=== PATIENT | female | born 1990 | race Caucasian/White ===

== ENCOUNTER 2024-07-03 14:34 | Outpatient (CLI) | payer OTHER, SELFPAY ==
--- NOTE | ~2024-07-03 | MR_ITS ---
EXAMINATION: MR brain/brain stem wo/w con DATE: 07/03/2024 15:22 INDICATION: Unspecified convulsions. Dizziness and giddiness. Headache. TECHNIQUE: Magnetic resonance imaging (MRI) of the brain and brainstem was performed without and with 12 mL MultiHance intravenous contrast. COMPARISON: None. FINDINGS: There is no intracranial hemorrhage, acute infarction, or abnormal intracranial mass lesion . The ventricles are normal in size. The paranasal sinuses are clear. The orbits are normal. The mast oid air cells are normal. IMPRESSION: 1. Normal brain. Reviewed, dictated and finalized at location A. IMPRESSION: 1. Normal brain.
== END 2024-07-03 14:35 | disposition home or self-care (01) ==
LOC: ANHIMG 14:35
PROVIDERS: PCP Nurse Practitioner Family; Visit Provider Nurse Practitioner Family
DX: R56.9 Unspecified convulsions (principal); R51.9 Headache, unspecified; R42 Dizziness and giddiness
CPT/HCPCS: 70553; A9577

== ENCOUNTER 2025-07-20 20:13 | Emergency (ER) | payer OTHER, SELFPAY ==
[2025-07-20 20:19] VITALS: BP 107/71; PULSE 86; RESP 20; TEMP 37.2; O2SAT 98
[2025-07-20 22:01] LABS: Hematocrit 36.7 % (37.0-47.0); Hemoglobin 12.0 g/dL (12.0-15.0); Immature Granulocyte Percent A 0.1 % (0-0.5); Lymphocytes Absolute Auto 1.51 K/mm3 (0.9-3.2); Mean Corpuscular HGB Conc 32.7 g/dl (32-36); Mean Corpuscular Hemoglobin 29.6 pg (26-34); Mean Corpuscular Volume 90.4 fl (80-100); Nucleated Red Blood Cells Absolute Auto 0.000 K/mm3 (0.0-0.012); Nucleated Red Blood Cells Perc 0.0 % (0.0-0.2); Platelet Count Result 299 k/mm3 (150-375); Red Blood Count 4.06 M/mm3 (4.2-5.4); White Blood Count 9.0 K/mm3 (4.5-10.0)
[2025-07-20] MEDS: SODIUM CHLORIDE 0.9% IV 1,000 ML 999 ML IV CONT ×2 (22:08→22:09)
[2025-07-20] MEDS: MAGNESIUM SULF 1 GM/D5W 100 ML 1 GM/100 ML BAG IVPB (22:09)
[2025-07-20] MEDS: FAMOTIDINE 20 MG/2 ML VIAL IV PUSH (22:09)
[2025-07-20] MEDS: PROCHLORPERAZINE EDISYLATE 10 MG/2 ML VIAL IV PUSH (22:09)
[2025-07-20 22:13] LABS: Alanine Aminotransferase 13 U/L (6-35); Albumin Level 4.9 g/dL (3.5-5.1); Alkaline Phosphatase 60 U/L (38-126); Anion Gap 11 mmol/L (4-12); Aspartate Amino Transferase 26 U/L (14-36); Bilirubin,Total 0.4 mg/dL (0.2-1.3); Blood Urea Nitrogen 11 mg/dL (7-17); Calcium 9.3 mg/dL (8.4-10.2); Carbon Dioxide 26 mmol/L (22-30); Chloride 102 mmol/L (98-107); Estimated CRCL calculation 73 ml/min; Estimated Glomerular Filt Rate > 60; Glucose 107 mg/dL (65-110); Lipase 85 U/L (23-300); Magnesium 2.1 mg/dL (1.6-2.3); Potassium 4.2 mmol/L (3.4-5.0); Sodium 139 mmol/L (137-145); Total Protein 8.9 g/dL (6.3-8.2)
[2025-07-20 22:26] LABS: BEDSIDEPREGUCG Negative (Negative)
[2025-07-20 22:43] LABS: Add Urine Microscopic? YES; Appearance Urine Turbid (Clear); Glucose Urine UA Negative (Negative); Leukocyte Esterase Ur 1+ LEU/UL (Negative); Need Manual Microscopic Reviewed; Nitrate Urine Negative (Negative); Specific Grav Ur 1.031 (1.001-1.035)
--- NOTE | 2025-07-20 22:54 | ED.GENADULT ---
HPI - General Adult General Chief complaint: Headache Stated complaint: migraine, N/V/D today Time Seen by Provider: 07/20/25 21:40 History of Present Illness HPI narrative: Patient 35-year-old female who presents emergency department chief complaint of nausea vomiting and diarrhea and migraine for the last week the patient states that she has history of headaches but usually does not have to come to the emergency department reports she also has had problems with chronic abdominal pain Related Data Home Medications ?Medication ?Instructions ?Recorded ?Confirmed ?Last Taken ?Type cyclobenzaprine 10 mg tablet 10 mg PO TID 06/05/24 07/02/25 Unknown History Allergies Allergy/AdvReac Type Severity Reaction Status Date / Time Penicillins Allergy Difficulty Verified 07/20/25 20: Breathing morphine AdvReac Intermediate VOMITING Verified 07/20/25 20:25 Review of Systems Review of Systems: A 10 system review of systems was completed on the patient and is negative except for what is stated in the HPI. Nursing and ancillary documentation was reviewed. [facility] Past Medical History Medical History Encounter to establish care Loss of consciousness Family History Family History Mother Depression Social History Social History Smoking status: Never smoker Alcohol intake: never Substance use: current Substance use type: marijuana Other substance usage details: Medical Marijuana Exam Narrative: GENERAL: Well-appearing, well-nourished, and in no acute distress. HEAD: Normocephalic, atraumatic. EYES: PERRLA and EOMI. ENT: Nares clear, no rhinorrhea or epistaxis. Mucous membranes moist. NECK: Supple. CHEST: Clear to auscultation. No respiratory distress. HEART: Regular rate and rhythm. No murmur heard. Normal peripheral pulses. ABDOMEN: Soft, nontender, nondistended, normal active bowel sounds. EXTREMITIES: Normal range of motion. No edema. SKIN: Warm, dry, no rash. NEURO: No focal deficits. Alert and oriented x3. PSYCH: Normal mood and affect. Course Vital Signs Vital signs: Vital Signs Temperature 37.2 C 07/20/25 20:19 Pulse Rate 86 10/07/25 20:19 Respiratory Rate 20 07/20/25 20:19 Blood Pressure 107/71 07/20/25 20:19 Pulse Oximetry 98 07/20/25 20:19 Oxygen Delivery Room Air 07/20/25 20:19 Temperature 37.2 C 07/20/25 20:19 Pulse Rate 86 07/20/25 20:19 Respiratory Rate 20 07/20/25 20:19 Blood Pressure 107/71 07/20/25 20:19 Pulse Oximetry 98 07/20/25 20:19 Oxygen Delivery Room Air 07/20/25 20:19 Medical Decision Making MDM Narrative Medical decision making narrative: Differential diagnosis includes migraine headache, electrolyte abnormality, gastroenteritis, intra-abdominal infection Laboratory studies were obtained on the patient showed normal CBC with white count of 9.0 hemoglobin was 12.0 electrolytes showed no acute abnormality liver enzymes were normal lipase was normal urinalysis showed 1+ leukocyte esterase 6-10 white blood cells Patient received IV fluids antiemetics and her headache is doing much better at this time feels be significantly improved. Patient was started on antibiotic for UTI and will be discharged home Vital Signs Vital Signs: Vital Signs Temperature 37.2 C 07/20/25 20:19 Pulse Rate 86 07/20/25 20:19 Respiratory Rate 20 07/20/25 20:19 Blood Pressure 107/71 07/20/25 20:19 Pulse Oximetry 98 07/20/25 20:19 Oxygen Delivery Room Air 07/20/25 20:19 Temperature 37.2 C 07/20/25 20:19 Pulse Rate 86 07/20/25 20:19 Respiratory Rate 20 07/20/25 20:19 Blood Pressure 107/71 07/20/25 20:19 Pulse Oximetry 98 07/20/25 20:19 Oxygen Delivery Room Air 07/20/25 20:19 Lab Data 07/20/25 21:54 07/20/25 21:54 Labs: Lab Results 07/20/25 07/20/25 07/20/25 Range/Units 21:54 22:21 22:24 WBC 9.0 (4.5-10.0) K/mm3 RBC 4.06 L (4.2-5.4) M/mm3 Hgb 12.0 (12.0-15.0) g/dL Hct 36.7 L (37.0-47.0) % MCV 90.4 (80-100) fl MCH 29.6 (26-34) pg MCHC 32.7 (32-36) g/dl RDW 12.7 (11.5-14.5) % Plt Count 299 (150-375) k/mm3 MPV 10.3 (7.4-10.4) fl Immature Gran % (Auto) 0.1 (0-0.5) % Neut % (Auto) 79.0 H (45.5-73.1) % Lymph % (Auto) 16.7 L (18.3-44.2) % [place] % (Auto) 3.8 (2.6-8.5) % Eos % (Auto) 0.1 (0-4.4) % Baso % (Auto) 0.3 (0.2-1.2) % Lymph # (Auto) 1.51 (0.9-3.2) K/mm3 [place] # (Auto) 0.3 (0.1-0.6) K/mm3 Eos # (Auto) 0.0 (0-0.3) K/mm3 Baso # (Auto) 0.0 (0.0-0.1) K/mm3 Abs Immat Gran (auto) 0.01 (0.00-0.031) K/mm3 Absolute Neuts (auto) 7.1 H (1.3-6.7) K/mm3 Absolute Nucleated RBC 0.000 (0.0-0.012) K/mm3 Nucleated RBC % 0.0 (0.0-0.2) % Sodium 139 (137-145) mmol/L Potassium 4.2 (3.4-5.0) mmol/L Chloride 102 (98-107) mmol/L Carbon Dioxide 26 (22-30) mmol/L Anion Gap 11 (4-12) mmol/L BUN 11 (7-17) mg/dL Creatinine 0.72 (0.7-1.0) mg/dL Estim Creat Clear Calc 73 ml/min Estimated GFR > 60 (59 - ) Glucose 107 (65-110) mg/dL Calcium 9.3 (8.4-10.2) mg/dL Magnesium 2.1 (1.6-2.3) mg/dL Total Bilirubin 0.4 (0.2-1.3) mg/dL AST 26 (14-36) U/L ALT 13 (6-35) U/L Alkaline Phosphatase 60 (38-126) U/L Total Protein 8.9 H (6.3-8.2) g/dL Albumin 4.9 (3.5-5.1) g/dL Lipase 85 (23-300) U/L Urine Color Yellow (Yellow) Urine Appearance Turbid H (Clear) Urine pH 8.5 (5.0-9.0) Ur Specific [place] 1.031 (1.001-1.035) Urine Protein 1+ H (Negative) mg/dL Urine Glucose (UA) Negative (Negative) mg/dL Urine Ketones 4+ H (Negative) mg/dL Ur Blood (Man) Negative (Negative) Urine Nitrate Negative (Negative) Urine Bilirubin Negative (Negative) Urine Urobilinogen 1.0 (<2.0) mg/dL Add Ur Microanalysis Reviewed Leukocyte Esterase Rfl 1+ H (Negative) LAILA/UL Urine RBC 0-2 (0-2) /hpf Urine WBC 6-10 H (0-3) /hpf Ur Squamous Epith Cells Moderate (Few) /hpf Urine Bacteria None seen /hpf Urine Casts 3-5 Urine Mucus Present /lpf POC Urine HCG, Qual Negative (Negative) Discharge Plan Discharge Clinical Impression: Headache, Abdominal pain, UTI (urinary tract infection) Patient Disposition: Home Condition: Stable Instructions: Antibiotic Form, Urinary Tract Infection in Women (ED), Acute Headache (ED), Abdominal Pain (ED) Patient Language: Frisian Prescriptions: New sulfamethoxazole-trimethoprim [Bactrim DS] 800-160 mg tablet 1 tablet PO Q12H 7 Days Qty: 14 0RF No Action cyclobenzaprine 10 mg tablet 10 mg PO TID Follow-up/Referrals: Monik Arreguin APRN [Primary Care Provider, Internal Medicine] Time of Disposition: 23:15
[2025-07-20 23:26] VITALS: BP 105/59; PULSE 91; RESP 14; O2SAT 100
== END 2025-07-20 23:24 | disposition home or self-care (01) ==
PROVIDERS: Emergency Provider Emergency Medicine; PCP Nurse Practitioner Family
DX: N39.0 Urinary tract infection, site not specified (principal); R51.9 Headache, unspecified; R10.9 Unspecified abdominal pain; G89.29 Other chronic pain
CPT/HCPCS: 36415; 80053; 81001; 81025; 83690; 83735; 85025; 96361; 96374; 96375; 99284; J0780; J1200; J3475; J7030

== ENCOUNTER 2025-08-14 05:39 | Emergency (ER) | payer OTHER, SELFPAY ==
--- NOTE | 2025-08-14 05:57 | ED_ITS ---
HPI - Abdominal Pain General Chief Complaint: Abdominal Pain <Antonio Way MD - Last Filed: 08/15/25 01:05 JUDICIAL LAW CLERK> Stated Complaint: abd pain / n / v <Antonio Way MD - Last Filed: 08/15/25 01:05 JUDICIAL LAW CLERK> Time Seen by Provider: 08/14/25 05:51 <Antonio Way MD - Last Filed: 08/15/25 01:05 JUDICIAL LAW CLERK> History of Present Illness HPI narrative: 35-year-old female with history of chronic abdominal pain and suspected cyclic vomiting syndrome and cannabinoid hyperemesis. Patient presents to the emergency department today with abdominal discomfort nausea vomiting. States he feels similar to her chronic abdominal discomfort and chronic nausea. States she was at [facility] 2 days ago for the same thing and they discharged her after IV and antiemetics including Haldol which did not help. Patient states she is out of pain medicines and nausea medicines at home. She has an extensive history of chronic abdominal pain on review of the EMR and recently admitted to [facility] 2 weeks ago for several days with extensive workup including EGD, Gastroenterology consult, CT scan, ultrasounds. No acute findings, patient requested Dilaudid during that admission as she did not have any pain relief with anything else. Patient requesting Dilaudid presently. No traumatic injuries. No fever chills. States that she has not smoked marijuana in over a week. No new health concerns otherwise. Patient has been on multiple medications for symptom control including citalopram, hyoscyamine, Linzess, Protonix, oxycodone. No symptom relief. <Antonio Way MD - Last Filed: 08/15/25 01:05 JUDICIAL LAW CLERK> Related Data Home Medications: Home Medications ?Medication ?Instructions ?Recorded ?Confirmed ?Last Taken ?Type citalopram 10 mg tablet 10 mg PO DAILY 08/05/2507/15 Unknown History pantoprazole 40 mg tablet,delayed 40 mg PO QAM 5 08/05/25 Unknown History release <Antonio Way MD - Last Filed: 08/15/25 01:05 JUDICIAL LAW CLERK> Allergies/Adverse Reactions: Allergies Allergy/AdvReac Type Severity Reaction Status Date / Time Penicillins Allergy Difficulty Verified 08/14/25 05:39 Breathing morphine AdvReac Intermediate VOMITING Verified 08/14/25 05:39 <Antonio Way MD - Last Filed: 08/15/25 01:05 JUDICIAL LAW CLERK> Review of Systems 2 Review of Systems: As reviewed above in HPI <Antonio Way MD - Last Filed: 08/15/25 01:05 JUDICIAL LAW CLERK> PMFSH Past Medical History Medical History: Medical History Encounter to establish care Loss of consciousness <Antonio Way MD - Last Filed: 08/15/25 01:05 JUDICIAL LAW CLERK> Family History Family History: Family History Mother Depression <Antonio Way MD - Last Filed: 08/15/25 01:05 JUDICIAL LAW CLERK> Social History Social History: Social History Smoking status: Never smoker Alcohol intake: never Substance use: current Substance use type: marijuana Other substance usage details: Medical Marijuana <Antonio Way MD - Last Filed: 08/15/25 01:05 JUDICIAL LAW CLERK> Exam 2 Narrative: GENERAL: [Well-appearing, well-nourished, and in no acute distress.] HEAD: [Normocephalic, atraumatic.] EYES: [PERRLA and EOMI.] ENT: Nares clear, no rhinorrhea or epistaxis. Mucous membranes moist. NECK: Supple. CHEST: [Clear to auscultation. No respiratory distress.] HEART: [Regular rate and rhythm]. No murmur heard. [Normal peripheral pulses.] ABDOMEN: Soft and nontender nondistended, no rigidity guarding. No peritonitis. EXTREMITIES: Normal range of motion. [No edema.] SKIN: Warm, dry, no rash. NEURO: [No focal deficits]. Alert and oriented [x3.] PSYCH: [Normal mood and affect.] <Antonio Way MD - Last Filed: 08/15/25 01:05 JUDICIAL LAW CLERK> Course Course Emergency Course: Patient resting comfortably. Received Toradol for pain as well as droperidol for nausea vomiting and lactated Ringer's for hydration. Labs reviewed without significant abnormalities. She does have some ketones in her urine but no electrolyte derangement. Drug screen positive for cannabis and benzodiazepines. She is prescribed alprazolam. Recommend follow-up with her GI physician. Will continue anti emetics at and also provide some anti-gas medication. <Malcolm Fine MD - Last Filed: 08/14/25 09:56> Vital Signs Vital signs: Vital Signs Pulse Rate 96 08/14/25 07:35 Respiratory Rate 16 08/14/25 07:35 Blood Pressure 138/84 08/14/25 07:35 Pulse Oximetry 100 08/14/25 07:35 Oxygen Delivery Room Air 08/14/25 07:35 Pulse Rate 81 08/14/25 07:40 Respiratory Rate 14 08/14/25 07:40 Blood Pressure 138/84 08/14/25 07:40 Pulse Oximetry 100 08/14/25 07:40 Oxygen Delivery Room Air 08/14/25 07:35 <Antonio Way MD - Last Filed: 08/15/25 01:05 JUDICIAL LAW CLERK> Vital Signs Pulse Rate 96 08/14/25 07:35 Respiratory Rate 16 08/14/25 07:35 Blood Pressure 138/84 08/14/25 07:35 Pulse Oximetry 100 08/14/25 07:35 Oxygen Delivery Room Air 08/14/25 07:35 Pulse Rate 81 08/14/25 07:40 Respiratory Rate 14 08/14/25 07:40 Blood Pressure 138/84 08/14/25 07:40 Pulse Oximetry 100 08/14/25 07:40 Oxygen Delivery Room Air 08/14/25 07:35 <Malcolm Fine MD - Last Filed: 08/14/25 09:56> MDM - Abdominal Pain MDM Narrative Medical decision making narrative: 35-year-old female with history of chronic abdominal pain and suspected cyclic vomiting syndrome and cannabinoid hyperemesis. Patient presents to the emergency department today with abdominal discomfort nausea vomiting. States he feels similar to her chronic abdominal discomfort and chronic nausea. States she was at [facility] 2 days ago for the same thing and they discharged her after IV and antiemetics including Haldol which did not help. Patient states she is out of pain medicines and nausea medicines at home. She has an extensive history of chronic abdominal pain on review of the EMR and recently admitted to [facility] 2 weeks ago for several days with extensive workup including EGD, Gastroenterology consult, CT scan, ultrasounds. No acute findings, patient requested Dilaudid during that admission as she did not have any pain relief with anything else. Patient requesting Dilaudid presently. No traumatic injuries. No fever chills. States that she has not smoked marijuana in over a week. No new health concerns otherwise. Patient has been on multiple medications for symptom control including citalopram, hyoscyamine, Linzess, Protonix, oxycodone. No symptom relief. Patient has an unremarkable examination with soft nondistended nontender abdomen with no peritonitis or rigidity. Hemodynamically stable without any tachycardia, fever, hypoxia. Blood pressure 126/86. Respirations 13, pulse 78, 99% on room air. Patient's symptoms sound like cyclic vomiting/chronic abdominal pain with low concern acute process given her extensive workup previously. No change in quality to her chronic abdominal pain or any red flags on history or physical needing advanced imaging at this time and risks of repeated radiation exposure outweigh the benefits of another nondiagnostic CT scan. Laboratory studies obtained and she was given droperidol and fluids. Patient care signed over to morning physician pending labs and repeat evaluation. <Antonio Way MD - Last Filed: 08/15/25 01:05 JUDICIAL LAW CLERK> Medical Records Attestation: I reviewed the patient's medical records. <Antonio Way MD - Last Filed: 08/15/25 01:05 JUDICIAL LAW CLERK> Lab Data Attestation: I reviewed the patient's lab results. <Antonio Way MD - Last Filed: 08/15/25 01:05 JUDICIAL LAW CLERK> Result diagrams: 08/14/25 06:47 08/14/25 06:47 <Antonio Way MD - Last Filed: 08/15/25 01:05 JUDICIAL LAW CLERK> Labs: Lab Results 08/14/25 08/14/25 Range/Units 06:47 07:34 WBC 10.1 H (4.5-10.0) K/mm3 RBC 4.01 L (4.2-5.4) M/mm3 Hgb 12.0 (12.0-15.0) g/dL Hct 36.5 L (37.0-47.0) % MCV 91.0 (80-100) fl MCH 29.9 (26-34) pg MCHC 32.9 (32-36) g/dl RDW 12.7 (11.5-14.5) % Plt Count 341 (150-375) k/mm3 MPV 10.7 H (7.4-10.4) fl Immature Gran % (Auto) 0.3 (0-0.5) % Neut % (Auto) 73.9 H (45.5-73.1) % Lymph % (Auto) 17.3 L (18.3-44.2) % [place] % (Auto) 7.8 (2.6-8.5) % Eos % (Auto) 0.1 (0-4.4) % Baso % (Auto) 0.6 (0.2-1.2) % Lymph # (Auto) 1.74 (0.9-3.2) K/mm3 [place] # (Auto) 0.8 H (0.1-0.6) K/mm3 Eos # (Auto) 0.0 (0-0.3) K/mm3 Baso # (Auto) 0.1 (0.0-0.1) K/mm3 Abs Immat Gran (auto) 0.03 (0.00-0.031) K/mm3 Absolute Neuts (auto) 7.5 H (1.3-6.7) K/mm3 Absolute Nucleated RBC 0.000 (0.0-0.012) K/mm3 Nucleated RBC % 0.0 (0.0-0.2) % Sodium 134 L (137-145) mmol/L Potassium 3.5 (3.4-5.0) mmol/L Chloride 98 (98-107) mmol/L Carbon Dioxide 23 (22-30) mmol/L Anion Gap 13 H (4-12) mmol/L BUN 9 (7-17) mg/dL Creatinine 0.52 L (0.7-1.0) mg/dL Estim Creat Clear Calc Not Reportable Estimated GFR > 60 (59 - ) Glucose 95 (65-110) mg/dL Lactic Acid 1.2 (0.7-2.0) mmol/L Calcium 9.3 (8.4-10.2) mg/dL Total Bilirubin 0.7 (0.2-1.3) mg/dL AST 30 (14-36) U/L ALT 17 (6-35) U/L Alkaline Phosphatase 59 (38-126) U/L Total Protein 8.4 H (6.3-8.2) g/dL Albumin 4.9 (3.5-5.1) g/dL Lipase 253 (23-300) U/L Urine Color Yellow (Yellow) Urine Appearance Cloudy H (Clear) Urine pH 6.0 (5.0-9.0) Ur Specific [place] 1.030 (1.001-1.035) Urine Protein 1+ H (Negative) mg/dL Urine Glucose (UA) Negative (Negative) mg/dL Urine Ketones 4+ H (Negative) mg/dL Ur Blood (Man) 2+ H (Negative) Urine Nitrate Negative (Negative) Urine Bilirubin Negative (Negative) Urine Urobilinogen 1.0 (<2.0) mg/dL Add Ur Microanalysis Reviewed Leukocyte Esterase Rfl Negative (Negative) LAILA/UL Urine RBC 0-2 (0-2) /hpf Urine WBC 6-10 H (0-3) /hpf Ur Squamous Epith Cells Moderate (Few) /hpf Urine Bacteria Rare /hpf Urine Casts 0-2 POC Urine HCG, Qual Negative (Negative) Urine Opiates Screen Negative (Negative) Urine Methadone Screen Negative (Negative) Ur Barbiturates Screen Negative (Negative) Ur Phencyclidine Scrn Negative (Negative) Ur Amphetamine Screen Negative (Negative) U Benzodiazepines Scrn Positive A (Negative) Urine Cocaine Screen Negative (Negative) U Cannabinoids Screen Positive A (Negative) <Antonio Way MD - Last Filed: 08/15/25 01:05 JUDICIAL LAW CLERK> Lab Results 08/14/25 08/14/25 Range/Units 06:47 07:34 WBC 10.1 H (4.5-10.0) K/mm3 RBC 4.01 L (4.2-5.4) M/mm3 Hgb 12.0 (12.0-15.0) g/dL Hct 36.5 L (37.0-47.0) % MCV 91.0 (80-100) fl MCH 29.9 (26-34) pg MCHC 32.9 (32-36) g/dl RDW 12.7 (11.5-14.5) % Plt Count 341 (150-375) k/mm3 MPV 10.7 H (7.4-10.4) fl Immature Gran % (Auto) 0.3 (0-0.5) % Neut % (Auto) 73.9 H (45.5-73.1) % Lymph % (Auto) 17.3 L (18.3-44.2) % [place] % (Auto) 7.8 (2.6-8.5) % Eos % (Auto) 0.1 (0-4.4) % Baso % (Auto) 0.6 (0.2-1.2) % Lymph # (Auto) 1.74 (0.9-3.2) K/mm3 [place] # (Auto) 0.8 H (0.1-0.6) K/mm3 Eos # (Auto) 0.0 (0-0.3) K/mm3 Baso # (Auto) 0.1 (0.0-0.1) K/mm3 Abs Immat Gran (auto) 0.03 (0.00-0.031) K/mm3 Absolute Neuts (auto) 7.5 H (1.3-6.7) K/mm3 Absolute Nucleated RBC 0.000 (0.0-0.012) K/mm3 Nucleated RBC % 0.0 (0.0-0.2) % Sodium 134 L (137-145) mmol/L Potassium 3.5 (3.4-5.0) mmol/L Chloride 98 (98-107) mmol/L Carbon Dioxide 23 (22-30) mmol/L Anion Gap 13 H (4-12) mmol/L BUN 9 (7-17) mg/dL Creatinine 0.52 L (0.7-1.0) mg/dL Estim Creat Clear Calc Not Reportable Estimated GFR > 60 (59 - ) Glucose 95 (65-110) mg/dL Lactic Acid 1.2 (0.7-2.0) mmol/L Calcium 9.3 (8.4-10.2) mg/dL Total Bilirubin 0.7 (0.2-1.3) mg/dL AST 30 (14-36) U/L ALT 17 (6-35) U/L Alkaline Phosphatase 59 (38-126) U/L Total Protein 8.4 H (6.3-8.2) g/dL Albumin 4.9 (3.5-5.1) g/dL Lipase 253 (23-300) U/L Urine Color Yellow (Yellow) Urine Appearance Cloudy H (Clear) Urine pH 6.0 (5.0-9.0) Ur Specific [place] 1.030 (1.001-1.035) Urine Protein 1+ H (Negative) mg/dL Urine Glucose (UA) Negative (Negative) mg/dL Urine Ketones 4+ H (Negative) mg/dL Ur Blood (Man) 2+ H (Negative) Urine Nitrate Negative (Negative) Urine Bilirubin Negative (Negative) Urine Urobilinogen 1.0 (<2.0) mg/dL Add Ur Microanalysis Reviewed Leukocyte Esterase Rfl Negative (Negative) LAILA/UL Urine RBC 0-2 (0-2) /hpf Urine WBC 6-10 H (0-3) /hpf Ur Squamous Epith Cells Moderate (Few) /hpf Urine Bacteria Rare /hpf Urine Casts 0-2 POC Urine HCG, Qual Negative (Negative) Urine Opiates Screen Negative (Negative) Urine Methadone Screen Negative (Negative) Ur Barbiturates Screen Negative (Negative) Ur Phencyclidine Scrn Negative (Negative) Ur Amphetamine Screen Negative (Negative) U Benzodiazepines Scrn Positive A (Negative) Urine Cocaine Screen Negative (Negative) U Cannabinoids Screen Positive A (Negative) <Malclom Fine MD - Last Filed: 08/14/25 09:56> Discharge Plan Discharge Clinical Impression: Chronic abdominal pain, Cyclical vomiting <Antonio Way MD - Last Filed: 08/15/25 01:05 JUDICIAL LAW CLERK> Patient Disposition: Home <Antonio Way MD - Last Filed: 08/15/25 01:05 JUDICIAL LAW CLERK> Condition: Stable <Antonio Way MD - Last Filed: 08/15/25 01:05 JUDICIAL LAW CLERK> Instructions: Abdominal Pain (ED), Cyclic Vomiting Syndrome (ED) <Antonio Way MD - Last Filed: 08/15/25 01:05 JUDICIAL LAW CLERK> Additional Instructions: Return to the emergency department if you develop severe abdominal pain, severe nausea and vomiting to the point where you are unable to keep down fluids, if you develop chest pain or difficulty breathing, blood in your stool, dizziness or fainting, or if you develop any other new or concerning symptoms as these could be signs of more serious medical illness. Try to stay well hydrated. Additionally, a many people are experiencing cyclic vomiting syndrome related to marijuana use. Is recommended to ease her symptoms that you discontinue use of any cannabinoid. <Antonio Way MD - Last Filed: 08/15/25 01:05 JUDICIAL LAW CLERK> Patient Language: Arabic <Antonio Way MD - Last Filed: 08/15/25 01:05 JUDICIAL LAW CLERK> Prescriptions: New simethicone 125 mg capsule 125 mg PO QID Qty: 20 0RF Rx Instructions: administer after meals and at bedtime ondansetron 4 mg tablet,disintegrating 4 mg PO Q6H PRN (Reason: nausea and vomiting) Qty: 10 0RF No Action pantoprazole 40 mg tablet,delayed release (DR/EC) 40 mg PO QAM citalopram 10 mg tablet 10 mg PO DAILY linaclotide 145 mcg capsule 145 mcg capsule 0RF hyoscyamine sulfate 0.125 mg tablet, sublingual See Rx Instructions .ROUTE .COMPLEX Qty: 360 0RF Dose Instruction: DISSOLVE 1 TABLET UNDER THE TONGUE FOUR TIMES DAILY NEEDED FOR INDIGESTION Rx Instructions: DISSOLVE 1 TABLET UNDER THE TONGUE FOUR TIMES DAILY NEEDED FOR INDIGESTION <Antonio Way MD - Last Filed: 08/15/25 01:05 JUDICIAL LAW CLERK> Follow-up/Referrals: Monik Arreguin APRN [Primary Care Provider, Internal Medicine] - [address] Week <[address] MD - Last Filed: 08/15/25 01:05 JUDICIAL LAW CLERK>
--- OUTSIDE RECORDS SUMMARY | 2025-08-14 06:02 | XMS_ITS | Clinical Summary ---
Author Organization [facility] al Address [address] [place] [address] Care Team Providers Care Energy Director Name Role Phone Monik Arreguin NP Primary Care Provider [phone] Allergies Active Allergy Reactions Criticality Noted Date Comments Morphine Nausea & Vomiting High 07/20/2025 Penicillins Shortness of breath High 07/20/2025 Medications haloperidoL (HALDOL) 5 mg tabletIndication s:Abdominal Pain of Unknown Cause,Nausea and Vomiting Take 1 tablet (5 mg total) by mouth 3 (three) times a day as needed (Abdominal pain and / or nausea) 60 tablet 1 08/07/2025 Active Encounters Date Type Department Care Team Description 08/07/2025 6:03 PM CDT - 08/07/2025 8:18 PM CDT Emergency [facility] Emergency Department [address] [place] [address] Chronic abdominal pain (Primary Dx) Discharge Disposition: Discharge to home or self care from Last 3 Months Social History Tobacco Use Types Packs/Day Years Used Date Smoking Tobacco: Never Assessed Personal Safety Answer Date Recorded Have you ever been in or are you currently in a harmful physical or emotional relationship or is someone making you feel afraid or unsafe? Denies 08/07/2025 Comments Unknown Sex and Gender Information Value Date Recorded Sex Assigned at Not on file Legal Sex Female 8:37 AM [employer] Gender Identity Not on file Sexual Orientation Not on file Obstetrics History Last Filed Vital Signs Vital Sign Reading Time Taken Comments Blood Pressure 114/75 08/07/2025 8:10 PM CDT Pulse 98 08/07/2025 8:10 PM CDT Temperature 36.8 C (98.3 F) 08/07/2025 4:54 PM CDT Respiratory Rate 16 08/07/2025 8:10 PM CDT Oxygen Saturation 99% 08/07/2025 8:10 PM CDT Inhaled Oxygen Concentration - - Weight 59.4 kg (131 lb) 08/07/2025 4:54 PM CDT Height 157.5 cm (5' 2) 08/07/2025 4:54 PM CDT Body Mass Index 23.96 08/07/2025 4:54 PM CDT Plan of Treatment Health Maintenance Due Date Last Done Comments Cervical Cancer Screening 1988 Depression Screening 1988 Hepatitis C Screening 1988 Varicella Vaccines (1 of 2 - 13+ 2-dose series) 02/18/2001 Hepatitis B Screening 02/18/2006 Regular Well Visit/Exam 18-64 02/18/2006 HPV Vaccines (1 - 3-dose SCD M series) 02/18/2015 Influenza Vaccine (#1) 2025 DTaP/Tdap/Td Vaccine (2 - Td or Tdap) 01/14/2029 01/14/2019 Pneumococcal vaccine <65 Aged Out No longer eligible based on patient's age to complete this topic Procedures Procedure Name Priority Date/Time Associated Diagnosis Comments EGFR STAT 08/07/2025 6:20 PM CDT COMPREHENSIVE METABOLIC PANEL STAT 08/07/2025 6:20 PM CDT ECG 12-LEAD STAT 08/07/2025 5:10 PM CDT from Last 3 Months Results * eGFR (08/07/2025 6:20 PM CDT) eGFR >90 >=60 mL/min/1. 73 m2 Comment: Interpretive Data Reference Interval Normal >/= 90 mL/min/1.73m2 Mildly decreased* 60 - 89 mL/min/1.73m2 Mildly to moderately decreased 45 - 59 mL/min/1.73m2 Moderately to severely decreased 30 - 44 mL/min/1.73m2 Severely decreased 15 - 29 mL/min/1.73m2 Kidney Failure < 15 mL/min/1.73m2 *Relative to young adult level Estimated glomerular filtration rate is determined by the 2020 CKD-EPI equation recommended by the [employer] (A Unifying Approach to GFR Estimation: Recommendations of the NKF-ASK Task Force on Reassessing the Inclusion of Race in Diagnosing Kidney Disease, JASN 2020). The CKD-EPI equation should not be used for patients with unstable renal function and has not been validated in children and those over 70. Current interpretive data was last reviewed 2021. Blood 08/07/2025 6:20 PM CDT 08/07/2025 6:30 PM CDT us Bravo Nguyen MD LAB BLOOD ORDERABLES Final Re sult [facility] Department [place] [address] * (ABNORMAL) Comprehensive metabolic panel (08/07/2025 6:20 PM CDT) Sodium 138 135 - 145 mmol/L Potassium, pl See Comment 3.3 - 4.9 mmol/L [facility] Comment:Credited; Hemolyzed Specimen Chloride 103 97 - 110 mmol/L [facility] CO2 20(L) 22 - 32 mmol/L [facility] Anion gap 15 2 - 15 mmol/L [facility] BUN 9 6 - 25 mg/dL [facility] Creatinine 0.57(L) 0.60 - 1.10 mg/dL [facility] Glucose 125 70 - 199 mg/dL [facility] Comment: Interpretive Data Fasting glucose >/= 126 mg/dl is diagnostic for diabetes. Fasting is defined as no caloric intake for at least 8 hours. Fasting glucose between 100 mg/dl to 125 mg/dl is diagnostic of prediabetes. In a patient with classic symptoms of hyperglycemia or hyperglycemic crisis, a random glucose >/= 200 mg/dl is diagnostic for diabetes. In the absence of unequivocal hyperglycemia, results should be confirmed by repeat testing. The classification and Diagnosis of Diabetes Diabetes Care 2021; 46: S19-S40. Current interpretive data was last revised 2022. Calcium 9.5 8.5 - 10.3 mg/dL [facility] Bilirubin, total 0.6 0.1 - 1.2 mg/dL [facility] Protein, pl 8.6(H) 6.5 - 8.5 g/dL [facility] Albumin 5.0 3.5 - 5.0 g/dL [facility] Alk phos 44 40 - 130 Units/L [facility] Comment:Hemolyzed; result ma y be falsely decreased ALT See Comment 7 - 45 Units/L [facility] Comment:Credited; Hemolyzed Specimen AST See Comment 10 - 45 Units/L [facility] Comment:Credited; Hemolyzed Specimen Blood Venous blood specimen / Unknown 08/07/2025 6:20 PM CDT 08/07/2025 6:30 PM CDT us Bravo Nguyen MD LAB BLOOD ORDERABLES Final Re sult [facility] [place] [address] * ECG 12-LEAD (08/07/2025 5:10 PM CDT) Narrative [facility] - 08/07/2025 5:10 PM CDT Rosey Faria MD 08/07/2025 5:11 PM ECG 12 lead Date/Time: 08/07/2025 5:10 PM Performed by: Rosey Faria MD Authorized by: Bravo Nguyen MD Quality: Tracing quality: Limited by artifact Rate: ECG rate: 100 ECG rate assessment: normal Rhythm: Rhythm: sinus rhythm Ectopy: Ectopy: none QRS: QRS axis: Normal Conduction: Conduction: normal ST segments: ST segments: Normal T waves: T waves: normal Previous ECG: Previous ECG: Unavailable Interpretation: Interpretation: normal Recommended Follow-up: Recommended follow up: further workup in the ED Procedure Note Rosey Faria MD - 08/07/2025 5:10 PM CDT Procedure ECG 12 lead Date/Time: 08/07/2025 5:10 PM Performed by: Rosey Faria MD Authorized by: Bravo Nguyen MD Quality: Tracing quality: Limited by artifact Rate: ECG rate: 100 ECG rate assessment: normal Rhythm: Rhythm: sinus rhythm Ectopy: Ectopy: none QRS: QRS axis: Normal Conduction: Conduction: normal ST segments: ST segments: Normal T waves: T waves: normal Previous ECG: Previous ECG: Unavailable Interpretation: Interpretation: normal Recommended Follow-up: Recommended follow up: further workup in the ED Rosey Faria MD 08/07/25 1711 us Bravo Nguyen MD ECG ORDERABLES Final Result [facility] from Last 3 Months Insurance [employer] [place] Care Teams Energy Director Relationship Specialty Start Date End Date Monik Arreguin NP [address] [place] [address] PCP - General Family Medicine 08/07/25
--- OUTSIDE RECORDS SUMMARY | 2025-08-14 06:03 | XMS_ITS | Data Portability ---
[facility] [address] [place] [address] Assessment No assessment recorded. Plan of Treatment Reminders Order Date Submit Date Provider Last Modified By Organization Details Last Modified Time Details Appointments None recorded. Lab urinalysi s, dipstick 2018 019 In-Office Order, Internal Use Only DO Not Attach Compendium DO Not Attach Compendium, Do Not Delete/merge, [id number] 9 17:17:11 test, urine 2018 019 [email or web address] In-Office Order, Internal Use Only DO Not Attach Compendium DO Not Attach Compendium, Do Not Delete/merge, [id number] 9 16:42:31 pap, IG + HPV, cervical 2018 019 JUNIOR [facility] (Centralized Electronic Ordering - All Locations), Patient Can Go To The Location Of Their Choice, [id number] 9 07:11:12 bacterial vaginosis + vaginitis panel, vaginal 2018 019 JUNIOR [facility] (Centralized Electronic Ordering - All Locations), Patient Can Go To The Location Of Their Choice, [id number] 9 06:05:39 HSV (1+2) DNA, qual, PCR, unspecifi ed specimen 2018 019 JUNIOR [facility] (Centralized Electronic Ordering - All Locations), Patient Can Go To The Location Of Their Choice, [id number] 9 06:05:40 culture, vaginal/r ectal, streptoco ccus group B 2018 019 JUNIOR [facility] (Centralized Electronic Ordering - All Locations), Patient Can Go To The Location Of Their Choice, 9 06:05:40 urinalysi s, dipstick 2018 019 [email or web address] In-Office Order, Internal Use Only DO Not Attach Compendium DO Not Attach Compendium, Do Not Delete/merge, [id number] 9 17:54:47 urinalysi s, dipstick 2018 019 [email or web address] In-Office Order, Internal Use Only DO Not Attach Compendium DO Not Attach Compendium, Do Not Delete/merge, [id number] 9 18:01:09 HSV (1+2) DNA, qual, PCR, unspecifi ed specimen - Please fax results to [facility] at [phone] 019 JUNIOR [facility] (Centralized Electronic Ordering - All Locations), Patient Can Go To The Location Of Their Choice, 9 14:10:41 culture, vaginal/r ectal, streptoco ccus group B - Please fax results to [facility] at 2018 019 [facility] Patient Can Go To The Location Of Their Choice, 9 14:10:42 bacterial vaginosis + vaginitis panel, vaginal - Please fax results to [facility] at 2018 019 JUNIOR [facility] (Centralized Electronic Ordering - All Locations), Patient Can Go To The Location Of Their Choice, 9 14:10:40 urinalysi s, dipstick 2018 019 [email or web address] In-Office Order, Internal Use Only DO Not Attach Compendium DO Not Attach Compendium, Do Not Delete/merge, [id number] 9 16:51:29 Referral None recorded. Procedures None recorded. Surgeries None recorded. Imaging None recorded. Medication Orders None recorded. Patient TargetsNo targets recorded. Patient Instructions Encounter Date Encounter Id Patient Instructions Last Modified By Organization Details Last Modified Time 04/29/2019 [id number] after your delivery (the period): care instructions mumtaz Not available 04/29/2019 16:42:31 Reason for Referral None Reported. Results Created Date Observation Date Name Description Value Unit Range Abnormal Flag Note LastModifiedBy Organization Detail LastModifiedTime 04/29/20 19 04/29/2019 pregn malou test, urine HCG negati ve Not Available In-Office Order Internal Use Only DO Not Attach Compendium DO Not Attach Compendium, Do Not Delete/merge, [id number] 04/29/2019 15:56:13 04/29/2004/29/2019 urina lysis , dipst ick Leukocytes Negati ve Not Available In-Office Order Internal Use Only DO Not Attach Compendium DO Not Attach Compendium, Do Not Delete/merge, [id number] 04/29/2019 15:56:12 04/29/2004/29/2019 urina lysis , dipst ick Nitrite negati ve Not Available In-Office Order Internal Use Only DO Not Attach Compendium DO Not Attach Compendium, Do Not Delete/merge, [id number] 04/29/2019 15:56:12 04/29/2004/29/2019 urina lysis , dipst ick Urobilinogen .2 Not Available In-Of fice Order Internal Use Only DO Not Attach Compendium DO Not Attach Compendium, Do Not Delete/merge, [id number] 04/29/2019 15:56:12 04/29/2004/29/2019 urina lysis , dipst ick Protein Negati ve Not Available In-Office Order Internal Use Only DO Not Attach Compendium DO Not Attach Compendium, Do Not Delete/merge, [id number] 04/29/2019 15:56:12 04/29/2004/29/2019 urina lysis , dipst ick pH 6.5 Not Available In-Office Order Internal Use Only DO Not Attach Compendium DO Not Attach Compendium, Do Not Delete/merge, [id number] 04/29/2019 15:56:12 04/29/2004/29/2019 urina lysis , dipst ick Blood Negati ve Not Available In-Office Order Internal Use Only DO Not Attach Compendium DO Not Attach Compendium, Do Not Delete/merge, [id number] 04/29/2019 15:56:12 04/29/20 19 04/29/2019 urina lysis , dipst ick Specific Wilton 1.010 Not Available In-Off ice Order Internal Use Only DO Not Attach Compendium DO Not Attach Compendium, Do Not Delete/merge, [facility] 04/29/2019 15:56:12 04/29/20 19 04/29/2019 urina lysis , dipst ick Ketone Negati ve Not Available In-Office Order Internal Use Only DO Not Attach Compendium DO Not Attach Compendium, Do Not Delete/merge, [facility] 04/29/2019 15:56:12 04/29/20 19 04/29/2019 urina lysis , dipst ick Bilirubin Negati ve Not Available In-Office Order Internal Use Only DO Not Attach Compendium DO Not Attach Compendium, Do Not Delete/merge, [facility] 04/29/2019 15:56:12 04/29/20 19 04/29/2019 urina lysis , dipst ick Glucose Negati ve Not Available In-Office Order Internal Use Only DO Not Attach Compendium DO Not Attach Compendium, Do Not Delete/merge, [facility] 04/29/2019 15:56:12 03/18/20 19 03/18/2019 urina lysis , dipst ick Leukocytes Trace Not Available In-Offi ce Order Internal Use Only DO Not Attach Compendium DO Not Attach Compendium, Do Not Delete/merge, [facility] 03/18/2019 16:05:27 03/18/20 19 03/18/2019 urina lysis , dipst ick Nitrite negati ve Not Available In-Office Order Internal Use Only DO Not Attach Compendium DO Not Attach Compendium, Do Not Delete/merge, [facility] 03/18/2019 16:05:27 03/18/20 19 03/18/2019 urina lysis , dipst ick Urobilinogen .2 Not Available In-Of fice Order Internal Use Only DO Not Attach Compendium DO Not Attach Compendium, Do Not Delete/merge, [facility] 03/18/2019 16:05:27 0603/18/2019 urina lysis , dipst ick Protein 30 Not Available In-Office Order Internal Use Only DO Not Attach Compendium DO Not Attach Compendium, Do Not Delete/merge, [id number] 03/18/2019 16:05:27 03/18/2003/18/2019 urina lysis , dipst ick pH 6.0 Not Available In-Office Order Internal Use Only DO Not Attach Compendium DO Not Attach Compendium, Do Not Delete/merge, [facility] 03/18/2019 16:05:27 03/18/2003/18/2019 urina lysis , dipst ick Blood Negati ve Not Available In-Office Order Internal Use Only DO Not Attach Compendium DO Not Attach Compendium, Do Not Delete/merge, [facility] 03/18/2019 16:05:27 03/18/2003/18/2019 urina lysis , dipst ick Specific Wilton 1.030 Not Available In-Off ice Order Internal Use Only DO Not Attach Compendium DO Not Attach Compendium, Do Not Delete/merge, [facility] 03/18/2019 16:05:27 03/18/2003/18/2019 urina lysis , dipst ick Ketone Large (160) Not Available In-Office Order Internal Use Only DO Not Attach Compendium DO Not Attach Compendium, Do Not Delete/merge, [facility] 03/18/2019 16:05:27 03/18/20 19 03/18/2019 urina lysis , dipst ick Bilirubin Small Not Available In-Offic e Order Internal Use Only DO Not Attach Compendium DO Not Attach Compendium, Do Not Delete/merge, [id number] 03/18/2019 16:05:27 03/18/2003/18/2019 urina lysis , dipst ick Glucose Negati ve Not Available In-Office Order Internal Use Only DO Not Attach Compendium DO Not Attach Compendium, Do Not Delete/merge, [id number] 03/18/2019 16:05:27 03/11/2003/11/2019 urina lysis , dipst ick Leukocytes Negati ve Not Available In-Office Order Internal Use Only DO Not Attach Compendium DO Not Attach Compendium, Do Not Delete/merge, [id number] 03/11/2019 16:14:39 03/11/20 19 03/11/2019 urina lysis , dipst ick Nitrite negati ve Not Available In-Office Order Internal Use Only DO Not Attach Compendium DO Not Attach Compendium, Do Not Delete/merge, [id number] 03/11/2019 16:14:39 03/11/20 19 03/11/2019 urina lysis , dipst ick Urobilinogen .2 Not Available In-Of fice Order Internal Use Only DO Not Attach Compendium DO Not Attach Compendium, Do Not Delete/merge, [id number] 03/11/2019 16:14:39 03/11/20 19 03/11/2019 urina lysis , dipst ick Protein Trace Not Available In-Office Order Internal Use Only DO Not Attach Compendium DO Not Attach Compendium, Do Not Delete/merge, [id number] 03/11/2019 16:14:39 03/11/20 19 03/11/2019 urina lysis , dipst ick pH 6.0 Not Available In-Office Order Internal Use Only DO Not Attach Compendium DO Not Attach Compendium, Do Not Delete/merge, [id number] 03/11/2019 16:14:39 03/11/20 19 03/11/2019 urina lysis , dipst ick Blood Negati ve Not Available In-Office Order Internal Use Only DO Not Attach Compendium DO Not Attach Compendium, Do Not Delete/merge, [id number] 03/11/2019 16:14:39 03/11/20 19 03/11/2019 urina lysis , dipst ick Specific Wil[place] 1.030 Not Available In-Off ice Order Internal Use Only DO Not Attach Compendium DO Not Attach Compendium, Do Not Delete/merge, [id number] 03/11/2019 16:14:39 03/11/20 19 03/11/2019 urina lysis , dipst ick Ketone Negati ve Not Available In-Office Order Internal Use Only DO Not Attach Compendium DO Not Attach Compendium, Do Not Delete/merge, [id number] 03/11/2019 16:14:39 03/11/20 19 03/11/2019 urina lysis , dipst ick Bilirubin Negati ve Not Available In-Office Order Internal Use Only DO Not Attach Compendium DO Not Attach Compendium, Do Not Delete/merge, [id number] 03/11/2019 16:14:39 03/11/20 19 03/11/2019 urina lysis , dipst ick Glucose Negati ve Not Available In-Office Order Internal Use Only DO Not Attach Compendium DO Not Attach Compendium, Do Not Delete/merge, [id number] 03/11/2019 16:14:39 03/04/20 19 03/04/2019 urina lysis , dipst ick Leukocytes Negati ve Not Available In-Office Order Internal Use Only DO Not Attach Compendium DO Not Attach Compendium, Do Not Delete/merge, [id number] 03/04/2019 16:29:10 03/04/20 19 03/04/2019 urina lysis , dipst ick Nitrite negati ve Not Available In-Office Order Internal Use Only DO Not Attach Compendium DO Not Attach Compendium, Do Not Delete/merge, [id number] 03/04/2019 16:29:10 03/04/20 19 03/04/2019 urina lysis , dipst ick Urobilinogen .2 Not Available In-Of fice Order Internal Use Only DO Not Attach Compendium DO Not Attach Compendium, Do Not Delete/merge, [id number] 03/04/2019 16:29:10 03/04/20 19 03/04/2019 urina lysis , dipst ick Protein 30 Not Available In-Office Order Internal Use Only DO Not Attach Compendium DO Not Attach Compendium, Do Not Delete/merge, [id number] 03/04/2019 16:29:10 03/04/20 19 03/04/2019 urina lysis , dipst ick pH 6.0 Not Available In-Office Order Internal Use Only DO Not Attach Compendium DO Not Attach Compendium, Do Not Delete/merge, [id number] 03/04/2019 16:29:10 03/04/20 19 03/04/2019 urina lysis , dipst ick Blood Negati ve Not Available In-Office Order Internal Use Only DO Not Attach Compendium DO Not Attach Compendium, Do Not Delete/merge, [id number] 03/04/2019 16:29:10 03/04/20 19 03/04/2019 urina lysis , dipst ick Specific Wil[place] 1.030 Not Available In-Off ice Order Internal Use Only DO Not Attach Compendium DO Not Attach Compendium, Do Not Delete/merge, [id number] 03/04/2019 16:29:10 03/04/20 19 03/04/2019 urina lysis , dipst ick Ketone Trace Not Available In-Office Order Internal Use Only DO Not Attach Compendium DO Not Attach Compendium, Do Not Delete/merge, [id number] 03/04/2019 16:29:10 03/04/20 19 03/04/2019 urina lysis , dipst ick Bilirubin Negati ve Not Available In-Office Order Internal Use Only DO Not Attach Compendium DO Not Attach Compendium, Do Not Delete/merge, [id number] 03/04/2019 16:29:10 03/04/20 19 03/04/2019 urina lysis , dipst ick Glucose Negati ve Not Available In-Office Order Internal Use Only DO Not Attach Compendium DO Not Attach Compendium, Do Not Delete/merge, [id number] 03/04/2019 16:29:10 02/19/20 19 02/18/2019 urina lysis , dipst ick Leukocytes Negati ve Not Available In-Office Order Internal Use Only DO Not Attach Compendium DO Not Attach Compendium, Do Not Delete/merge, [id number] 02/18/2019 15:47:34 02/19/20 19 02/18/2019 urina lysis , dipst ick Nitrite negati ve Not Available In-Office Order Internal Use Only DO Not Attach Compendium DO Not Attach Compendium, Do Not Delete/merge, [id number] 02/18/2019 15:47:34 02/19/20 19 02/18/2019 urina lysis , dipst ick Urobilinogen .2 Not Available In-Of fice Order Internal Use Only DO Not Attach Compendium DO Not Attach Compendium, Do Not Delete/merge, [id number] 02/18/2019 15:47:34 02/19/20 19 02/18/2019 urina lysis , dipst ick Protein Trace Not Available In-Office Order Internal Use Only DO Not Attach Compendium DO Not Attach Compendium, Do Not Delete/merge, [id number] 02/18/2019 15:47:34 02/19/20 19 02/18/2019 urina lysis , dipst ick pH 7.5 Not Available In-Office Order Internal Use Only DO Not Attach Compendium DO Not Attach Compendium, Do Not Delete/merge, [facility] 02/18/2019 15:47:34 02/19/2002/18/2019 urina lysis , dipst ick Blood Negati ve Not Available In-Office Order Internal Use Only DO Not Attach Compendium DO Not Attach Compendium, Do Not Delete/merge, [facility] 02/18/2019 15:47:34 02/19/20 19 02/18/2019 urina lysis , dipst ick Specific Wil[place] 1.025 Not Available In-Off ice Order Internal Use Only DO Not Attach Compendium DO Not Attach Compendium, Do Not Delete/merge, [facility] 02/18/2019 15:47:34 02/19/20 19 02/18/2019 urina lysis , dipst ick Ketone Negati ve Not Available In-Office Order Internal Use Only DO Not Attach Compendium DO Not Attach Compendium, Do Not Delete/merge, [facility] 02/18/2019 15:47:34 02/19/20 19 02/18/2019 urina lysis , dipst ick Bilirubin Negati ve Not Available In-Office Order Internal Use Only DO Not Attach Compendium DO Not Attach Compendium, Do Not Delete/merge, [facility] 02/18/2019 15:47:34 02/19/20 19 02/18/2019 urina lysis , dipst ick Glucose 2000+ Not Available In-Office Order Internal Use Only DO Not Attach Compendium DO Not Attach Compendium, Do Not Delete/merge, [facility] 02/18/2019 15:47:34 02/05/2002/04/2019 urina lysis , dipst ick Leukocytes Negati ve Not Available In-Office Order Internal Use Only DO Not Attach Compendium DO Not Attach Compendium, Do Not Delete/merge, [facility] 02/04/2019 16:45:29 02/05/20 19 02/04/2019 urina lysis , dipst ick Nitrite negati ve Not Available In-Office Order Internal Use Only DO Not Attach Compendium DO Not Attach Compendium, Do Not Delete/merge, [facility] 02/04/2019 16:45:29 02/05/2002/04/2019 urina lysis , dipst ick Urobilinogen .2 Not Available In-Of fice Order Internal Use Only DO Not Attach Compendium DO Not Attach Compendium, Do Not Delete/merge, [id number] 02/04/2019 16:45:29 02/05/2002/04/2019 urina lysis , dipst ick Protein Negati ve Not Available In-Office Order Internal Use Only DO Not Attach Compendium DO Not Attach Compendium, Do Not Delete/merge, 02/04/2019 16:45:29 02/05/2002/04/2019 urina lysis , dipst ick pH 7.5 Not Available In-Office Order Internal Use Only DO Not Attach Compendium DO Not Attach Compendium, Do Not Delete/merge, 02/04/2019 16:45:29 02/05/2002/04/2019 urina lysis , dipst ick Blood Negati ve Not Available In-Office Order Internal Use Only DO Not Attach Compendium DO Not Attach Compendium, Do Not Delete/merge, [id number] 02/04/2019 16:45:29 02/05/2002/04/2019 urina lysis , dipst ick Specific Wil[place] 1.015 Not Available In-Off ice Order Internal Use Only DO Not Attach Compendium DO Not Attach Compendium, Do Not Delete/merge, [id number] 02/04/2019 16:45:29 02/05/2002/04/2019 urina lysis , dipst ick Ketone Negati ve Not Available In-Office Order Internal Use Only DO Not Attach Compendium DO Not Attach Compendium, Do Not Delete/merge, [id number] 02/04/2019 16:45:29 02/05/2002/04/2019 urina lysis , dipst ick Bilirubin Negati ve Not Available In-Office Order Internal Use Only DO Not Attach Compendium DO Not Attach Compendium, Do Not Delete/merge, 02/04/2019 16:45:29 02/05/2002/04/2019 urina lysis , dipst ick Glucose Negati ve Not Available In-Office Order Internal Use Only DO Not Attach Compendium DO Not Attach Compendium, Do Not Delete/merge, [id number] 02/04/2019 16:45:29 03/04/20 19 03/06/2019 bacte rial vagin osis + vagin itis panel , vagin al atopobium vaginae LOW - 0 score Not Available [facility] ([facility]) [address] [facility], [place], [address], 03/11/2019 14:10:40 03/04/20 19 03/06/2019 bacte rial vagin osis + vagin itis panel , vagin al bvab 2 LOW - 0 score Not Available [facility] ([facility]) [address] [place], [address], 03/11/2019 14:10:40 03/04/20 19 03/06/2019 bacte rial vagin osis + vagin itis panel , vagin al megasphaera 1 LOW - 0 score Calcu late total score by dean sampson the 3 indiv idual bacte rial vagin osis (BV) marke r score s toget her. Total score is inter prete d as follo ws: Total score 0-1: Indic ates the absen ce of BV. Total score 2: Indet ermin ate for BV. Addit ional clini yanet data shoul d be evalu ated to estab sarthak a diagn osis. Total score 3-6: Indic ates the prese nce of BV. This test was devel oped and its perfo rmanc e jerald cteri stics deter mined by [facility]. It has not been clear ed or appro anabel by the Food and Drug Admin istra tion. The FDA has deter mined that such clear ance or appro andrei is not neces jaqueline. Not Available [facility] ([facility]) [address] [facility], [place], [address], 03/11/2019 14:10:40 03/04/20 19 03/06/2019 bacte rial vagin osis + vagin itis panel , vagin al maren albicans, CATIE NEGATI VE negati ve Not Available [facility] ([facility]) [address] [place], [address], 03/11/2019 14:10:40 03/04/20 19 03/06/2019 bacte rial vagin osis + vagin itis panel , vagin al maren glabrata, CATIE NEGATI VE negati ve This test was devel oped and its perfo rmanc e jerald cteri stics deter mined by [facility]. It has not been clear ed or appro anabel by the Food and Drug Admin istra tion. The FDA has deter mined that such clear ance or appro andrei is not neces jaqueline. Not Available [facility] ([facility]) [address] [place], [address], 03/11/2019 14:10:40 03/04/20 19 03/06/2019 bacte rial vagin osis + vagin itis panel , vagin al trich vag by CATIE NEGATI VE negati ve Not Available [facility] ([facility]) [address] [place], [address], 03/11/2019 14:10:40 03/04/20 19 03/06/2019 bacte rial vagin osis + vagin itis panel , vagin al chlamydia trachomatis, CATIE NEGATI VE negati ve Not Available [facility] ([facility]) [address] [place], [address], 03/11/2019 14:10:40 03/04/20 19 03/06/2019 bacte rial vagin osis + vagin itis panel , vagin al neisseria gonorrhoeae, CATIE NEGATI VE negati ve Not Available [facility] ([facility]) [address] [place], [address], 03/11/2019 14:10:40 03/04/20 19 03/11/2019 HSV (1+2) DNA, qual, PCR, unspe cifie d speci men hsv 1 CATIE NEGATI VE negati ve Not Available [facility] ([facility]) [address] [place], [address], 03/11/2019 14:10:41 03/04/20 19 03/11/2019 HSV (1+2) DNA, qual, PCR, unspe cifie d speci men hsv 2 CATIE NEGATI VE negati ve Not Available [facility] ([facility]) [address] [facility], [place], [address], 03/11/2019 14:10:41 03/04/20 19 03/06/2019 cultu re, vagin al/re ctal, strep tococ cus group B strep gp B CATIE NEGATI VE negati ve Cente rs for Disea se Contr ol and Preve ntion (CDC) and Ameri can Congr ess of Obste trici ans and Gynec ologi sts (ACOG ) guide lines for preve ntion of perin atal group B strep tococ yanet (GBS) disea se speci fy co-co llect ion of a vagin al and recta l swab speci men to maxim ize sensi tivit y of GBS detec tion. Per the CDC and ACOG, swabb ing both the lower vagin a and rectu m subst antia lly incre ases the yield of detec tion fidel red with sampl ing the vagin a alone . Penic illin G, ampic illin , or cefaz sofía are indic ated for intra partu m proph ylaxi s of perin atal GBS colon izati on. Refle x susce ptibi lity testi ng maria eugenia d be perfo rmed prior to use of clind amyci n only on GBS isola sofya from penic illin -isrrael rgic women who are consi dered a high risk for anaph ylaxi s. Treat ment with vanco mycin witho ut addit ional testi ng is warra nted if resis tance to clind amyci n is noted . Not Available [facility] ([facility]) [address] [facility], [place], [address], 03/11/2019 14:10:42 04/29/20 19 04/30/2019 pap, IG + HPV, cervi yanet diagnosis: Commcarla t EMI BEAR FOR INTRA EPITH ELIAL LESIO N OR MALRADHA MEEKS . Not Available [facility] ([facility]) [address] [place], [address], 05/01/2019 07:11:12 04/29/2004/30/2019 pap, IG + HPV, cervi yanet specimen adequacy: Commcarla t Satis facto ry for evalu ation . Endoc ervic al and/o r squam ous metap lasti c cells (endo cervi yanet compo nent) are prese nt. Not Available [facility] ([facility]) [address] [place], [address], 05/01/2019 07:11:12 04/29/2004/30/2019 pap, IG + HPV, cervi yanet clinician provided ICD10: Raquel finch Z39.2 Not Available [facility] ([facility]) [address] [place], [address], 05/01/2019 07:11:12 04/29/2004/30/2019 pap, IG + HPV, cervi yanet performed by: Raquel Rebolledo in, Cytot adilene robert t (ASCP ) Not Available [facility] ([facility]) [address] [place], [address], 05/01/2019 07:11:12 04/29/2004/30/2019 pap, IG + HPV, cervi yanet . . Not Available [facility] ([facility]) [address] [place], [address], 05/01/2019 07:11:12 04/29/2004/30/2019 pap, IG + HPV, cervi yanet note: Commcarla t The Pap smear is a scree josh test desig brianne to aid in the detec tion of randi ligna nt and malig nant condi tions of the uteri ne cervi x. It is not a diagn ostic proce dure and shoul d not be used as the sole means of detec ting cervi yanet cance r. Both false -posi tive and false -nega tive repor ts do occur . Not Available [facility] ([facility]) [address] [place], [address], 05/01/2019 07:11:12 04/29/2004/30/2019 pap, IG + HPV, cervi yanet test methodology: Commen t This liqui d based ThinP rep(R ) pap test was scree brianne with the use of an image guide magdy orellana. Not Available [facility] ([facility]) [address] [place], [address], 05/01/2019 07:11:12 04/29/2005/01/2019 pap, IG + HPV, cervi yanet HPV aptima Negati ve negati ve This test detec ts fourt een high- risk HPV types (16/1 8/31/ 33/35 /39/4 5/ 51/52 /56/5 8/59/ 66/68 ) witho ut diffe renti ation . Not Available [facility] ([facility]) [address] [place], [address], 05/01/2019 07:11:12 04/29/2005/02/2019 bacte rial vagin osis + vagin itis panel , vagin al trich vag by CATIE Negati ve negati ve Not Available [facility] ([facility]) [address] [place], [address], 05/04/2019 06:05:39 04/29/2005/02/2019 bacte rial vagin osis + vagin itis panel , vagin al chlamydia trachomatis, CATIE Negati ve negati ve Not Available [facility] ([facility]) [address] [place], [address], 05/04/2019 06:05:39 04/29/2005/02/2019 bacte rial vagin osis + vagin itis panel , vagin al neisseria gonorrhoeae, CATIE Negati ve negati ve Not Available [facility] ([facility]) [address] [place], [address], 05/04/2019 06:05:39 04/29/2005/04/2019 bacte rial vagin osis + vagin itis panel , vagin al atopobium vaginae Low - 0 score Not Available [facility] ([facility]) [address] [place], [address], 05/04/2019 06:05:39 04/29/2005/04/2019 bacte rial vagin osis + vagin itis panel , vagin al bvab 2 Low - 0 score Not Available [facility] ([facility]) [address] [place], [address], 05/04/2019 06:05:39 04/29/2005/04/2019 bacte rial vagin osis + vagin itis panel , vagin al megasphaera 1 Low - 0 score Calcu late total score by dean sampson the 3 indiv idual bacte rial vagin osis (BV) marke r score s toget her. Total score is inter prete d as follo ws: Total score 0-1: Indic ates the absen ce of BV. Total score 2: Indet ermin ate for BV. Addit ional clini yanet data shoul d be evalu ated to estab sarthak a diagn osis. Total score 3-6: Indic ates the prese nce of BV. This test was devel oped and its perfo rmanc e jerald cteri stics deter mined by [facility]. It has not been clear ed or appro anabel by the Food and Drug Admin istra tion. The FDA has deter mined that such clear ance or appro andrei is not neces jaqueline. Not Available [facility] ([facility]) [address] [place], [address], 05/04/2019 06:05:39 04/29/20 19 05/04/2019 bacte rial vagin osis + vagin itis panel , vagin al maren albicans, CATIE Negati ve negati ve Not Available [facility] ([facility]) [address] [place], [address], 05/04/2019 06:05:39 04/29/2005/04/2019 bacte rial vagin osis + vagin itis panel , vagin al maren glabrata, CATIE Negati ve negati ve This test was devel oped and its perfo rmanc e jerald cteri stics deter mined by [facility]. It has not been clear ed or appro anabel by the Food and Drug Admin istra tion. The FDA has deter mined that such clear ance or appro andrei is not neces jaqueline. Not Available [facility] ([facility]) [address] [place], [address], 05/04/2019 06:05:39 04/29/2005/03/2019 HSV (1+2) DNA, qual, PCR, unspe cifie d speci men hsv 1 CATIE Negati ve negati ve Not Available [facility] ([facility]) [address] [place], [address], 05/04/2019 06:05:40 04/29/2005/03/2019 HSV (1+2) DNA, qual, PCR, unspe cifie d speci men hsv 2 CATIE Negati ve negati ve Not Available [facility] ([facility]) [address] [place], [address], 05/04/2019 06:05:40 04/29/2005/01/2019 cultu re, vagin al/re ctal, strep tococ cus group B strep gp B CATIE Negati ve negati ve Cente rs for Disea se Contr ol and Preve ntion (CDC) and Ameri can Congr ess of Obste trici ans and Gynec ologi sts (ACOG ) guide lines for preve ntion of perin atal group B strep tococ yanet (GBS) disea se speci fy co-co llect ion of a vagin al and recta l swab speci men to maxim ize sensi tivit y of GBS detec tion. Per the CDC and ACOG, swabb ing both the lower vagin a and rectu m subst antia lly incre ases the yield of detec tion fidel red with sampl ing the vagin a alone . Penic illin G, ampic illin , or cefaz sofía are indic ated for intra partu m proph ylaxi s of perin atal GBS colon izati on. Refle x susce ptibi lity testi ng shoul d be perfo rmed prior to use of clind amyci n only on GBS isola sofya from penic illin -isrrael rgic women who are consi dered a high risk for anaph ylaxi s. Treat ment with vanco mycin witho ut addit ional testi ng is warra nted if resis tance to clind amyci n is noted . Not Available [facility] ([facility]) [address] [facility], [place], [address], 05/04/2019 06:05:40 05/21/20 24 05/21/2024 XR, chest No observ ation record ed. [address] [place], [address], 05/22/2024 10:02:00 05/21/20 24 05/21/2024 CT, head, w/o contr ast No observ ation record ed. [address] [place], [address], 05/22/2024 10:01:34 05/22/20 24 05/21/2024 CT, abdom en + pelvi s, w/ contr ast No observ ation record ed. [address] [place], [address], 05/22/2024 10:00:58 Result Notes None recorded. Problems Name Problem SNOMED Code Status Onset Date Resolution Date Notes Provider Name and Address Organization Details Recorded Time Cervicov aginal cytology : Low grade squamous intraepi thelial lesion 399727831 Completed Penny [place] - [facility] 0 09:12:26 Deliveri es by Completed [place] [facility] 0 09:12:26 Deliveri es by Active Penny Yan[place] [facility] 0 09:12:26 Cervicov aginal cytology : Low grade squamous intraepi thelial lesion 072713667 Active Penny [place] [facility] 0 09:12:26 Pregnanc y 56229490 Completed 201606/05/2017 Willard [place] [facility] 8 16:26:26 Hypereme sis 771041745 Completed 201602/04/2019 Long history of hyperemes is [place] [facility] 9 16:54:18 Hypereme sis 412812075 Completed 2016 Long history of hyperemes is [place] [facility] 7 17:56:06 HPV - Human papillom avirus test positive Completed 2016 Penny Yan[place] [facility] 0 09:12:26 HPV - Human papillom avirus test positive Active 2016 Penny Yan[place] [facility] 0 09:12:26 HPV - Human papillom avirus test positive Completed 2016 [place] Liz [place] [facility] 7 17:56:06 Rubella non-immu ne 706643453 Completed 2016 needs vaccinati on post Penny [place] [facility] 0 09:12:26 Rubella non-immu ne 335720573 Active 2016 needs vaccinati on post Penny [place] [facility] 0 09:12:26 Rubella non-immu ne 149035332 Completed 2016 needs vaccinati on post Willard lópez[place] - [facility] 7 17:56:06 Pregnanc y 74801344 Completed 201708/27/2018 Will[place] - [facility] 8 16:26:26 Subchori onic hematoma 581229543 Active 2017 Penny Yan[place] [facility] 0 09:12:26 Subchori onic hematoma 287291849 Completed 2017 Penny [place] [facility] 0 09:12:26 Abnormal progeste silverio 605103392 Completed 2017 Penny [place] [facility] 0 09:12:26 Abnormal progeste silverio 098570072 Active 2017 Penny [place] [facility] 0 09:12:26 Chronic idiopath ic constipa tion 37510389 Completed 2018 Penny [place] [facility] 0 09:12:26 Chronic idiopath ic constipa tion 16764131 Active 2018 Penny [place] [facility] 0 09:12:26 Female steriliz ation Completed 2018 Penny [place] [facility] 0 09:12:26 Female steriliz ation Active 2018 Penny [place] [facility] 0 09:12:26 Problem Notes None recorded. Procedures Surgical History Date Name Laterality Status Provider Name and Address Organization Details Recorded Time 03/20/20 19 SECTION (SURG) completed Willadr Liz [place] [facility] 04/02/2019 15:02:21 07/28/20 18 Date of Last Pap Smear completed [place]ard Liz [place] - [facility] 03/19/2019 19:40:14 06/26/20 17 Caesarean Section completed Erin Hutson [place] - [facility] 08/08/2017 16:27:11 10/14/19 07 Laparoscopy completed Asya Key [place] [facility] 12/07/2014 12:05:58 Imaging Results None recorded. Procedure Notes None recorded. Medical Equipment None Reported. Allergies Allergen ID Allergen Name Allergen Category Reaction Reaction Severity Criticality Documentation Date Start Date Code Code System Note Provider Name and Address Organization Details Recorded Time 143511 morphine medicatio n vomiting moderate Not available 07/28/2018 7052 RxNorm NHUNG [place] - [facility] 8 16:42:20 14581 amoxicill in medicatio n lighthead edness respirato ry distress Not available Not available Not available 12/27/2016 723 RxNorm NHUNG [place] - [facility] 7 11:25:44 Medications Name Sig Start Date Stop Date Status Note LastModified by Organization Details LastModified Time Prescript ion - Prior Authoriza tion Request 08/08 completed Not Available Not Available Not Available multivita min tablet Take 1 tablet every day by oral route. 08/27 completed Not Available Not Available Not Available loratadin e 10 mg disintegr ating tablet Take 1 tablet every day by oral route. 10/22 completed Not Available Not Available Not Available sumatript an 100 mg tablet Take 1 tablet as needed by oral route as needed. 08/08 completed Not Available Not Available Not Available Zithromax Z-Roberto Carlos 250 mg tablet TAKE 2 TABLETS (500 MG) BY ORAL ROUTE ONCE DAILY FOR 1 DAY THEN 1 TABLET (250 MG) BY ORAL ROUTE ONCE DAILY FOR 4 DAYS 10/22 completed Not Available Not Available Not Available clindamyc in HCl 150 mg capsule 01/14 completed Not Available Not Available Not Available aspirin 81 mg tablet,de layed release Take 1 tablet every day by oral route. 04/29 completed Not Available Not Available Not Available Condoms-P rem Lubricate d Take 1 device as needed by miscell. route as needed. 08/08 completed Not Available Not Available Not Available Vitamin tablet Take 1 tablet every day by oral route as directed for 90 days. 04/29 completed Not Available Not Available Not Available progester one micronize d 200 mg capsule Take 1 capsule twice a day by oral route. 04/29 completed Not Available Not Available Not Available ondansetr on 4 mg disintegr ating tablet Take 1 tablet every 8 hours by oral route as needed. 02/19 completed Not Available Not Available Not Available metoclopr amide 10 mg tablet Take 1 tablet before meals and at bedtime. 02/19 completed Not Available Not Available Not Available Melina 0.35 mg tablet Take one PO QD 08/08 completed Not Available Not Available Not Available Tri-Sprin srinivasa (28) 0.18 mg(7)/0.2 15 mg(7)/0.2 5 mg(7)-0.0 35 mg tablet TAKE ONE TABLET BY MOUTH ONCE DAILY 07/28 completed Not Available Not Available Not Available Calcium with Vitamin D3 600 mg (carbonat e)-10 mcg (400 unit) capsule Take 1 capsule twice a day by oral route. 08/27 completed Not Available Not Available Not Available Tri-Lo-Sp rintec 0.18 mg/0.215 mg/0.25 mg-0.025 mg tablet Take 1 tablet every day by oral route. 10/17 completed Pt wanted to go on previous dose. Not Available Not Available Not Available metoclopr amide 5 mg disintegr ating tablet Take 2 tablets 4 times a day by oral route. 2016 active Not Available Not Available Not Avai lable Linzess 145 mcg capsule Take 1 capsule every day by oral route. 01/14 completed Not Available Not Available Not Available Flonase Allergy Relief 50 mcg/actua tion nasal spray,[place] 1 spray every day by intranas al route. 10/22 completed Not Available Not Available Not Available Linzess 72 mcg capsule Take 1 capsule every day by oral route. 08/08 completed Not Available Not Available Not Available Vitals Date Recorded Body weight Provider Name an d Address Organization Details Last Updated DateTime 03/04/2019 74812.65031 g Erin Hutson [place] - [facility] 03/18/2019 11:57:42 Date Recorded Body height Body mass index (BMI) Systolic And Diastolic Provider Name and Address Organization Details Last Updated DateTime 03/04/2019 157.48 cm 28 kg/m2 104/72 mm[Hg] Heather Adorno MA [facility] 03/04/2019 15:47:11 Date Recorded Body weight Provider Name an d Address Organization Details Last Updated DateTime 03/11/2019 03905.65911 g Willard Liz [facility] 019 19:52:32 Date Recorded Body height Body mass index (BMI) Systolic And Diastolic Provider Name and Address Organization Details Last Updated DateTime 03/11/2019 157.48 cm 28.2 kg/m2 104/68 mm[Hg] Heather Adorno MA [facility] 03/11/2019 15:58:26 Date Recorded Body height Body mass index (BMI) Body weight Systolic And Diastolic Provider Name and Address Organization Details Last Updated DateTime 03/18/2019 157.48 cm 27.8 kg/m2 33438.040 24 g 100/64 mm[Hg] Odin Pruett MA [facility] 03/18/2019 16:05:16 Date Recorded Body height Body mass index (BMI) Body weight Systolic And Diastolic Provider Name and Address Organization Details Last Updated DateTime 04/02/2019 157.48 cm 24.3 kg/m2 95682.785 21 g 102/60 mm[Hg] Heather Adorno MA [facility] 04/02/2019 14:51:00 Date Recorded Body height Body mass index (BMI) Body weight Systolic And Diastolic Provider Name and Address Organization Details Last Updated DateTime 04/29/2019 157.48 cm 24.1 kg/m2 86312.19 g 118/64 mm[Hg] rEin Hutson MA [facility] 04/29/2019 15:59:46 Social History Question Answer Notes LastModified by Organizat ion Details LastModified Time Tobacco Smoking Status Former Smoker Asya Key MA null, [facility] 12/07/2014 12:08:45 Do You Have An Advance Directive? No Information not available 12/07/2014 If You Are , What Was Your Level Of Alcohol Consumption Prior To ? Occasional [email or web address] Information not available 12/27/2016 Plan No [email or web address] Information no t available 12/27/2016 Is Blood Transfusion Acceptable In An Emergency? Yes Information not available 12/07/2014 What Is Your Level Of Caffeine Consumption? Moderate Tea [email or web address] Information not available 12/27/2016 Live With Cats/exposure To Cat Litter Yes [email or web address] Information not available 12/27/2016 How Much Tobacco Do You Chew? None Information not available 12/07/2014 What Type Of Diet Are You Following? REGULAR Information not available 12/07/2014 Which Illicit Or Recreational Drugs Have You Used? Marijuana [email or web address] Information not available 12/27/2016 Education 12 Information no t available 12/07/2014 Have There Been Any Changes To Your Family Or Social Situation? No [email or web address] Information not available 12/27/2016 Frequent Air Travel No [email or web address] Information not available 12/27/2016 Illicit Drugs Pre- Marijuana [email or web address] Information not available 12/27/2016 Live Alone Or With Others? With Others Information not available 12/07/2014 What Was The Date Of Your Most Recent Tobacco Screening? 04/29/2019 Information not available 05/07/2019 How Many Children Do You Have? 2 [email or web address] Information not available 04/29/2019 Performs Monthly Self-breast Exam? No Information not available 12/07/2014 Do You Use Protection During Sex? No Information not available 12/07/2014 What Is Your Relationship Status? Single Information not available 12/07/2014 Seat Belts Used Routinely Yes Information not available 12/07/2014 Are You Sexually Active? Yes Information not available 12/07/2014 Do You Have Smoke And Carbon Monoxide Detectors In Your Home? Yes [email or web address] Information not available 12/27/2016 Are You Passively Exposed To Smoke? Yes Marijuana [email or web address] Information not available 08/27/2018 How Much Tobacco Do You Smoke? No Information not available 12/07/2014 Smoking Pre- Yes [email or web address] Information not available 12/27/2016 General Stress Level Low Information not available 12/07/2014 Do You Use Sunscreen Routinely? Yes [email or web address] Information not available 12/27/2016 Supplements Pnv [email or web address] Information n ot available 12/27/2016 Has Tobacco Cessation Counseling Been Provided? Yes [email or web address] Information not available 03/19/2019 On What Date Was Tobacco Cessation Counseling Provided? 04/29/2019 [email or web address] Information not available 04/29/2019 How Many Years Have You Smoked Tobacco? 1 Information not available 12/07/2014 Sex: Unknown Functional Status Question Answer Note LastModified by Organizat ion Details LastModified Time What is your level of alcohol consumption? None [email or web address] Information not available 12/27/2016 Are you currently employed? 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 Occasional Information not available 12/07/2014 Mental Status None recorded. Family History Relationship Description Onset Age of this Age Resolved Age Notes LastModified by Organization Details LastModified Time Father No current problems or disability [email or web address] Not available 12/12 11:26:18 Mother No current problems or disability [email or web address] Not available 12/12 11:26:18 Medical History Condition Response Heart Problems N Other N High Blood Pressure N Breast Cancer N Thyroid Problems N Kidney or Bladder Problems N Lung Disease N GI Problems N Depression N Blood Clots N Acne N Eating Disorder N Breast Problem N Anemia N Anesthesia Complications N Headaches/Migraines N Ovarian Cancer N Diabetes N Anxiety Disorder N Muscle, Joint, or Bone Problems N Blood Transfusions N Seizures/Epilepsy N Arthritis N Polyps N Infertility N Acid Reflux (GERD) N Cancer N Stroke N Abuse/Domestic Violence N Asthma N Endometriosis N High Cholesterol N Hepatitis N Liver Disease N Heart Disease N Fibromyalgia N Pre-Eclampsia N Hypertension N Osteoporosis N Kidney Disease N Gynecological History Statement/Question Response Abnormal Pap N On BCP's at Conception? Y STIs/STDs N HPV Vaccine N Age at Menarche 12 Current Control Method Tubal Ligat ion Age at First Child 27 Sexually Active? Y Menses Monthly N Date of Last Pap Smear 07/28/2018 Sexual Problems? N LMP Approximate Desired Control Method Sterilizati on Obstetrics History GPAL:G 2 P 2 0 0 2 Type Value Multiple Births 0 Full Term 2 Induced 0 Spontaneous 0 Premature 0 Living 2 Ectopics 0 Total 2 Immunizations Vaccine Type Date Status Note Provider Nam e and Address Organization Details Recorded Time Tdap 01/14/2019 completed Not Available [facility] 10/31/2019 02:37:33 Past Encounters Encounter ID Performer Location Encounter Start Date Encounter Closed Date Diagnosis/Indication Diagnosis SNOMED-CT Code Diagnosis ICD10 Code Diagnosis IMO Codes Diagnosis Note [id number] Gurpreet Cortez MD [facility] (CONTROL [employer] D[employer]FTING OFFICER) [address] [place] [address] [id number] 0 12/07/2014 11:15:20 12/07/2014 12:26:01 Gynecologic examination 09324090 Uses contraception [id number] Gurpreet Cortez MD [facility] (CONTROL [employer] D[employer]FTING OFFICER) [address] [place] [address] [id number] 0 01/04/2015 10:55:34 01/04/2015 11:57:59 Cervicovaginal cytology: Low grade squamous intraepithelial lesion 626541562 [id number] Willard Liz MD [facility] (CONTROL [employer] D[employer]FTING OFFICER) [address] [place] [address] [id number] 0 12/27/2016 10:35:37 12/28/2016 12:13:46 Routine care 477069295 Z34.01 Hyperemesis 357026871 R1 1.10 [id number] [facility] [address] [place] [address] [id number] 0 01/11/2017 14:45:03 01/11/2017 15:53:33 Routine care 563095703 Z34.01 [id number] MD Marry Hamilton (CONTROL [employer] D[employer]ING OFFICER) [address] [place] [address] [id number] 0 01/24/2017 12:13:38 01/24/2017 13:19:15 Routine care 885115316 Z34.92 [facility] [id number] G43.90 [id number] [facility] [facility]IC[facility]) [address] [place] [address] [id number] 0 2017 10:50:37 2017 15:26:02 Routine care 478929992 Z34.92 [id number] Willard Liz MD [facility] (CONTROL [employer]S DRAFTING OFFICER) [address] [place] [address] [id number] 0 03/21/2017 12:15:42 03/21/2017 17:08:07 Routine care 336050577 Z34.92 HPV - Kavitha n papillomavirus test positive 074502434 R87.619 Hyperemesis 210225637 R1 1.10 Cervicovag inal cytology: Low grade squamous intraepithelial lesion 019515791 R87.612 Diabetes m ellitus screening 849429239 Z13.1 Z13.9 1 hr GTT at next visit; instructio ns discussed w/ pt and papers given [id number] Willard Liz MD [facility] (CONTROL [employer]S DRAFTING OFFICER) [address] [place] [address] [id number] 0 04/08/2017 10:08:04 04/08/2017 15:46:04 Routine care 688606137 Z34.92 [id number] Willard Liz MD [facility] (CONTROL [employer]S DRAFTING OFFICER) [address] [place] [address] [id number] 0 05/09/2017 11:50:46 05/09/2017 16:24:14 Routine care 593010320 Z34.92 [id number] Willard Liz MD [facility] (CONTROL [employer] D[employer]ING OFFICER) [address] [place] [address] [id number] 0 05/22/2017 15:44:26 05/22/2017 17:09:13 Routine care 774007056 Z34.92 Hyperemesis 339402088 R1 1.10 Cervicovag inal cytology: Low grade squamous intraepithelial lesion 344038209 R87.612 Rubella non-immune 97752 4009 Z01.84 Will vaccinate [id number] Willard Liz MD [facility] (CONTROL [employer]S DRAFTING OFFICER) [address] [place] [address] [id number] 0 06/05/2017 16:13:19 06/06/2017 17:40:59 Routine care 704318994 Z34.92 Painful ut erine contractions 471010842 N85.8 Patient instructed to drink 3 L of Gatorade/P owerade solutions per day. labor instructio ns were given. FFN done today with cultures FFN not turned in due to time of appt and culture not sent off STAT. Mily NHUNG mds [id number] MD Marry Hamilton (CONTROL [employer]ING OFFICER) [address] [place] [address] [id number] 0 06/13/2017 15:31:01 06/13/2017 17:14:24 Routine care 469113392 Z34.92 [id number] [facility] [employer] [facility]ING OFFIC[facility]) [address] [place] [address] [id number] 0 06/20/2017 15:15:37 06/24/2017 14:08:21 Routine care 553124132 Z34.92 Rubella non-immune 58234 4009 Z01.84 Will vaccinate . HPV - Kavitha n papillomavirus test positive 688641572 R87.619 Cervicovag inal cytology: Low grade squamous intraepithelial lesion 626403059 R87.406 [id number] [facility]ING OFFICER) [address] [place] [address] [id number] 0 07/10/2017 15:44:34 07/10/2017 17:22:58 care 374317223 Z39.2 Family kia nning surveillance 900861407 Z30.09 Chronic id iopathic constipation 51414789 K59.04 Cervicovag inal cytology: Low grade squamous intraepithelial lesion 011330320 R87.612 PPP in 4 weeks [id number] Willard Liz MD [facility] (CONTROL [employer] D[employer]FTING OFFICER) [address] [place] [address] [id number] 0 08/08/2017 15:40:43 08/13/2017 17:04:58 state 27513853 Z39.2 Exposure t o sexually transmissible disorder 849434081 Z20.2 Family kia nning surveillance 885705129 Z30.09 Rubella non-immune 05709 4009 Z01.84 Pt refuses to get MMR booster vaccine. Plz see vaccine declinatio n form in clinical documents. Mily NHUNG 08/08/2017 [facility] [id number] [facility]ING OFFIC[facility]) [address] [place] [address] [id number] 0 07/28/2018 16:00:35 07/28/2018 17:02:10 Routine care 649319013 Z34.92 Declines flu vaccine. Deliveries by 741971086 O82 Hyperemesis 107731643 R1 1.10 Rubella non-immune 60793 4009 Z01.84 Pt refuses to get MMR booster vaccine. Plz see vaccine declinatio n form in clinical documents. Mily HOOKER 08/08/2017 [facility] [id number] MD Marry Hamilton (CONTROL [employer] D[employer]ING OFFICER) [address] [place] [address] [id number] 0 08/27/2018 16:05:59 08/29/2018 13:20:26 Subchorionic hematoma 643596698 O41.8X99 Routine an tenatal care 837809840 Z34.81 Declines flu vaccine. Abnormal progesterone 13 9687062 R94.7 [id number] MD Marry Hamilton (CONTROL [employer]ING OFFICER) [address] [place] [address] [id number] 0 09/24/2018 16:45:30 09/25/2018 11:35:55 Routine care 735906075 Z34.81 Declines flu vaccine. DECLINES AFP TESTING Upper resp iratory infection 79017050 J06.9 Abnormal progesterone 13 9385153 R94.7 [id number] MD Marry Hamilton (CONTROL [employer]ING OFFICER) [address] [place] [address] 01690-906 0 10/22/2018 16:04:14 10/23/2018 10:27:13 Routine care 730044484 Z34.81 Declines flu vaccine. DECLINES AFP TESTING Abnormal progesterone 13 0347471 R94.7 [id number] MD Marry Hamilton (CONTROL [employer] D[employer]ING OFFICER) [address] [place] [address] [id number] 0 11/19/2018 16:51:16 11/20/2018 11:31:59 Routine care 249889799 Z34.81 Declines flu vaccine. DECLINES AFP TESTING Impacted molars 68227735 2 K01.1 ok for wisdom teeth removal in 2 weeks. [id number] MD Marry Hamilton (CONTROL [employer] D[employer]ING OFFICER) [address] [place] [address] [id number] 0 12/17/2018 16:00:46 12/17/2018 17:00:37 Routine care 816566861 Z34.81 Declines flu vaccine. DECLINES AFP TESTING Rubella non-immune 94070 4009 Z01.84 Pt refuses to get MMR booster vaccine. Plz see vaccine declinatio n form in clinical documents. Mily [place] 08/08/2017 [facility] HPV - Kavitha n papillomavirus test positive 312298727 R87.619 Cervicovag inal cytology: Low grade squamous intraepithelial lesion 546259656 R87.612 PPP in 4 weeks Chronic id iopathic constipation 60629112 K59.04 [id number] Willard Liz MD [facility] (CONTROL [employer]S DRAFTING OFFICER) [address] [place] [address] [id number] 0 01/14/2019 09:52:24 01/14/2019 14:23:22 Routine care 684765849 Z34.81 Declines flu vaccine. DECLINES AFP TESTING screening 2437 93454 Z36.9 Abnormal progesterone 13 1274848 R94.7 Rubella non-immune 73331 4009 Z01.84 Pt refuses to get MMR booster vaccine. Plz see vaccine declinatio n form in clinical documents. [facility] [place] [facility]2017 [facility] [id number] Willard Liz MD [facility] (CONTROL [employer]S DRAFTING OFFICER) [address] [place] [address] [id number] 0 02/04/2019 16:02:59 02/04/2019 17:04:50 Routine care [id number] Z34.81 Declines flu vaccine. DECLINES AFP TESTING Rubella non-immune 21090 4009 Z01.84 Pt refuses to get MMR booster vaccine. Plz see vaccine declinatio n form in clinical documents. [facility] [place] [facility] HPV - Kavitha n papillomavirus test positive 111121019 R87.619 Cervicovag inal cytology: Low grade squamous intraepithelial lesion 999854019 R87.612 PPP in 4 weeks [id number] Willard Liz MD [facility] (CONTROL SYSTEMS DRAFTING OFFICER) [address] [place] [phone] 02/18/2019 15:24:13 02/18/2019 16:10:28 Routine care [id number] Z34.81 Declines flu vaccine. DECLINES AFP TESTING Abnormal progesterone 13 0583578 R94.7 Rubella non-immune 23384 4009 Z01.84 Pt refuses to get MMR booster vaccine. Plz see vaccine declinatio n form in clinical documents. Mily NHUNG 08/08/2017 [facility] HPV - Kavitha n papillomavirus test positive 795644321 R87.619 Cervicovag inal cytology: Low grade squamous intraepithelial lesion 168206179 R87.612 PPP in 4 weeks Deliveries by [id number] O82 Female sterilization 608 54679 Z30.2 [id number] Willard Liz MD [facility] (CONTROL SYSTEMS DRAFTING OFFICER) [address] [place] [address] 0 03/04/2019 15:06:49 03/04/2019 16:27:15 Routine care 212183530 Z34.83 Z36.9 Declines flu vaccine. DECLINES AFP TESTING Deliveries by [id number] O82 [id number] Willard Liz MD [facility] (CONTROL SYSTEMS DRAFTING OFFICER) [address] [place] [address] 0 03/11/2019 15:45:34 03/11/2019 17:42:17 Routine care 030518685 Z34.83 Z36.9 Declines flu vaccine. DECLINES AFP TESTING Deliveries by [id number] O82 Chronic id iopathic constipation 52228838 K59.04 Rubella non-immune 89938 4009 Z01.84 Pt refuses to get MMR booster vaccine. Plz see vaccine declinatio n form in clinical documents. Mily NHUNG 08/08/2017 [facility] HPV - Kavitha n papillomavirus test positive 227739937 R87.619 Abnormal progesterone 13 0186115 R94.7 Subchorionic hematoma 60 2785059 O41.8X99 Cervicovag inal cytology: Low grade squamous intraepithelial lesion 311079954 R87.612 PPP in 4 weeks [id number] Willard Liz MD [facility] (CONTROL SYSTEMS DRAFTING OFFICER) [address] [place] [phone] 0 03/18/2019 15:51:59 03/18/2019 17:57:59 Routine care 119570045 Z34.83 Z36.9 Declines flu vaccine. DECLINES AFP TESTING Deliveries by [id number] O82 Rubella non-immune 40284 4009 Z01.84 Pt refuses to get MMR booster vaccine. Please see vaccine declinatio n form in clinical documents. Mily HOOKER 08/08/2017 [facility] HPV - Kavitha n papillomavirus test positive 075558990 R87.619 Female sterilization 608 69354 Z30.2 [id number] MD Marry Hamilton (CONTROL SYSTEMS DRAFTING OFFICER) [address] [place] [address] 04/02/2019 14:35:32 04/03/2019 15:05:10 Female sterilization 75769306 Z30.2 Deliveries by [id number] O82 Abnormal progesterone 13 1774243 R94.7 Chronic id iopathic constipation 82107668 K59.04 HPV - Kavitha n papillomavirus test positive 431361874 R87.348 [id number] MD Marry Hamilton (CONTROL SYSTEMS DRAFTING OFFICER) [address] [place] [address] 04/29/2019 15:28:23 04/29/2019 16:36:55 state 52177036 Z39.2 care 41789591 8 Z39.2 Female sterilization 608 67991 Z30.2 Deliveries by [id number] O82 Chronic id iopathic constipation 15760614 K59.04 Rubella non-immune 45241 4009 Z01.84 Pt refuses to get MMR booster vaccine. Please see vaccine declinatio n form in clinical documents. Mily NHUNG 08/08/2017 [facility] HPV - Kavitha n papillomavirus test positive 561770998 R87.619 Cervicovag inal cytology: Low grade squamous intraepithelial lesion 847339825 R87.612 PPP in 4 weeks Health Concerns Section Related Observation LastModified by Organization Detai ls LastModified Time None Recorded Concern Status LastModified by Organization Details LastModified Time None Recorded Advance Directives Directive N: Payers Insurance Date Sequence Insurance Name Policy Number Policy Simpson Covered Member ID Simpson Member ID Guarantor Name 08/04/2018 SLIDING FEE SCHEDULE - DISCOUNT Sofie Colin 08/27/2018 1 *SELF PAY* Darcie Colin 08/04/2018 SLIDING FEE SCHEDULE - DISCOUNT Sofie Colin 08/27/2018 1 MEDICAID - [id number] - PENDING [id number] Sofie Colin 10/22/2018 1 [place] [facility] Sofie Colin [id number] Sofie Colin 12/17/2018 1 [facility] (MEDICAID HMO) [facility] E Sofieanais Colin [id number] Sofieanais Jesuss 05/04/2019 1 [facility] PRIOR TO 04/13/2021 (MEDICAID REPLACEMENT - HMO) Sofie Cristi [id number] Sofie Cristi 05/09/2017 SLIDING FEE SCHEDULE - DISCOUNT Sofieanais Jesuss 07/28/2018 1 [facility] PRIOR TO 04/13/2021 (MEDICAID REPLACEMENT - HMO) Sofie Cristi [id number] Sofie Cristi 12/26/2016 1 *SELF PAY* Darcie cedrickanais Colin 2017 1 [place] [facility] Sofie Colin [id number] Sofie Colin Notes Date Note Type Note Provider Name and Address Organization Details Recorded Time 019 text/ht ml OB ProblemReported by PatientHPIFor associated symptoms, patient reportsno abdominal pain,no cramping,no contractions,normal movement,no bleeding,no rom,no vaginal discharge,no vaginal/vulvar itching or irritation,no dysuria,no frequency,no urgency,no hematuria,no fever,no nausea,no emesis,no constipation,no diarrhea/loose stool,no edema,no visual changes,no headache, andno dizziness.ROS as noted in the HPI 28yo CF 36wk5d presents for dinesh. Willard Liz [facility] 03/05/2019 20:40:49 019 text/ht ml OB ProblemReported by PatientHPIFor associated symptoms, patient reportscontractionsbut reportsno abdominal pain,no cramping,normal movement,no bleeding,no rom,no vaginal discharge,no vaginal/vulvar itching or irritation,no dysuria,no frequency,no urgency,no hematuria,no fever,no nausea,no emesis,no constipation,no diarrhea/loose stool,no edema,no visual changes,no headache, andno dizziness(contractions occur at night).ROS as noted in the HPI 28yo CF 37wk5d with history of abnormal progesterone, constipation, rubella non-immune, subchorionic hematoma, HPV+, and LGSIL presents for dinesh with c/o fatigue. Willard lópez [facility] 03/12/2019 19:03:37 019 text/ht ml OB ProblemReported by PatientHPIFor associated symptoms, patient reportscrampingandcontractionsbut reportsno abdominal pain,normal movement,no bleeding,no rom,no vaginal discharge,no vaginal/vulvar itching or irritation,no dysuria,no frequency,no urgency,no hematuria,no fever,no nausea,no emesis,no constipation,no diarrhea/loose stool,no edema,no visual changes,no headache, andno dizziness.ROS as noted in the HPI 28yo CF 38wk5d with history of abnormal progesterone, constipation, rubella non-immune, subchorionic hematoma, HPV+, and LGSIL presents for dinesh with c/o fatigue. Willard lópez [place] [facility] 03/19/2019 18:27:10 019 text/ht ml Post-OpReported by PatientHPIFor associated symptoms, patient reportsincision healing well,normal appetite,normal bowel function,no constipation,no nausea,no emesis,pain improving,no pain,no fever,no bleeding,no lower extremity edema/pain, andno dysuria/urinary symptoms. 29 yo CF with h/o delivery, CIC, HPV, LSIL, and female sterilization presents for post-op visit following and BTL on 03-20-19. She reports she is healing well, is , and baby Tracey is doing well. Willard Liz rene [facility] 04/03/2019 13:34:57 019 text/ht ml VisitReported by PatientHPIFor onset/timing, patient reportsdate of delivery: (03-20-19). For quality, patient reportsrepeat lst c/s. For context, patient reportscomplications of : none,complications of labor: none, andfeeding choice: breast. For associated symptoms, patient reportsno abnormal bleeding,no pelvic pain,no constipation,no fecal incontinence,no dysuria,no urinary incontinence,no fever,no problems, andno mastitis. 29 yo CF with h/o delivery, CIC, HPV, LSIL, and female sterilization presents for visit following the of her son via on 03-20-19. She reports she is healing well, she is without difficulty. She will return to work in 1 week. Had tubal sterilization for post- control. No concerns at todays visit. Willard Liz [place], [place] - [facility] 04/30/2019 19:47:19 OBGyn Episode Ob Episode Information Episode Created Date Number of Fetuses Patient Bloodtype Patient rh Status Prepregnancy Weight lbs Domestic Partner Domestic Partner Phone Father Name Corporate Physical Security Supervisor Status 07/28/20 18 1 AB Positive 124 CLOSED Fetus Data First Name Last Name Admitted to NICU Weight (g) Sex Living Outcome Pediatric Complications Fetus ID Race Codes Race Delivery Type tracey oconnor false 3486.98 85 M true Full Term 76769 2106-3 White Problems Problem Notes PT WANTS PINK VAULT PERSON SAYS BLUE, ANGEL THINK PINK. WHO'S RIGHT? BREAST FEEDING AT FIRST, THEN SWITCH TO COMBO BREAST/BOTTLE FEEDING. IF IT IS A BOY, CIRCUMCISION IS YES. REPEAT , BANK SECRECY ACT OFFICER IS GOING TO [place] [address]. 09/24/2018 MLIY HOOKER PT IS HAVING A BOY, CIRCUMCISION IS YES, BABY NAME IS TRACEY ALY NO MIDDLE NAME YET. WHILE SHE CAN. BANK SECRECY ACT OFFICER IS DR. HERNANDEZ, REPEAT TUBAL LIGATION IS FOR PPBC. PAPERS SIGNED TODAY 01/14/2019 [facility] MR# [id number] Problem Name Start Date End Date Resolution Snomed Code Not e Rubella non-immune 01/03/2017 [id number] needs vaccination post Deliveries by Female sterilization 03/19/2019 05515027 Abnormal progesterone 08/27/2018 7469179 00 Chronic idiopathic constipation 12/17/2018 99844571 Cervicovaginal cytology: Low grade squamous intraepithelial lesion 451494574 HPV - Human papillomavirus test positive 01/02/2017 353435407 Subchorionic hematoma 08/27/2018 7916706 04 Anthony Calculation Initial Anthony Date Initial Exam Date Initial Exam Provider Initial Ultrasound Date Last Menstrual Period Date Ultra Sound Weeks Gestation 03/27/2019 07/28/2018 [email or web address] 08/22/2018 06/21/2018 9 Eighteen To Twenty Week Anthony Update Ultra Sound Date Fundal Height At Umbil Quickening Date Ultra Sound Latest Weeks Gestation Final Anthony Confirmed By Final Anthony Confirmed Date Final Anthony Date Ultra Sound Latest Days Gestation 08/22/20 18 9 [email or web address] 08/27/2018 03/27/20 19 0 Pre- Flowsheet Flowsheet Date 07/28/2018 Bee Score Blood Edema Fundus Height Fundus Units Glucose Ketones Leukocytes Nitrite Labor Signs Protein Cervic Dilation Cervic Effacement Cervic Station neg none 6 wks none negative neg Type Weight in lbs Pre/Post Dialysis Refused Weight 124.435788941153 BP Diastolic BP Location Tested BP Systolic BP Type 64 88 sitting Fetus Heart Rate Present Fetus Movement Comments NOB Flowsheet Date 08/27/2018 Bee Score Blood Edema Fundus Height Fundus Units Glucose Ketones Leukocytes Nitrite Labor Signs Protein Cervic Dilation Cervic Effacement Cervic Station neg none 9 wks none negative neg Type Weight in lbs Pre/Post Dialysis Refused Weight 124.874215962180 BP Diastolic BP Location Tested BP Systolic BP Type 64 106 sitting Fetus Heart Rate Present Fetus Movement Comments Discussed parviz rx for progest erone and aspirin. Repeat progestin level in 2 weeks, repeat US in 4 weeks. Flowsheet Date 09/24/2018 Bee Score Blood Edema Fundus Height Fundus Units Glucose Ketones Leukocytes Nitrite Labor Signs Protein Cervic Dilation Cervic Effacement Cervic Station neg none none negative none neg Type Weight in lbs Pre/Post Dialysis Refused Weight 124.985613472409 BP Diastolic BP Location Tested BP Systolic BP Type 66 98 sitting Fetus Heart Rate Present A 160 Present Fetus Movement A No Comments us normal Flowsheet Date 10/22/2018 Bee Score Blood Edema Fundus Height Fundus Units Glucose Ketones Leukocytes Nitrite Labor Signs Protein Cervic Dilation Cervic Effacement Cervic Station neg none none negative none neg Type Weight in lbs Pre/Post Dialysis Refused With clothes 133.293416531198 BP Diastolic BP Location Tested BP Systolic BP Type 66 110 sitting Fetus Heart Rate Present A 141 Present Fetus Movement A Yes Comments Flowsheet Date 11/19/2018 Bee Score Blood Edema Fundus Height Fundus Units Glucose Ketones Leukocytes Nitrite Labor Signs Protein Cervic Dilation Cervic Effacement Cervic Station neg none 21 wks none negative none neg Type Weight in lbs Pre/Post Dialysis Refused With clothes 136.284594762755 BP Diastolic BP Location Tested BP Systolic BP Type 50 92 sitting Fetus Heart Rate Present A 141 Present Fetus Movement A No Comments Patient went to ED for sever e cramping after starting clindamycin 4 days prior for a an upcoming wisdom tooth removal. After patient had a bowel movement symptoms resolved. Patient has no complaints today. Flowsheet Date 12/17/2018 Bee Score Blood Edema Fundus Height Fundus Units Glucose Ketones Leukocytes Nitrite Labor Signs Protein Cervic Dilation Cervic Effacement Cervic Station neg none 24 cm none negative none neg Type Weight in lbs Pre/Post Dialysis Refused Weight 143.888319627553 BP Diastolic BP Location Tested BP Systolic BP Type 58 102 sitting Fetus Heart Rate Present A 146 Present Fetus Movement A Yes Comments ob F/U Flowsheet Date 01/14/2019 Bee Score Blood Edema Fundus Height Fundus Units Glucose Ketones Leukocytes Nitrite Labor Signs Protein Cervic Dilation Cervic Effacement Cervic Station neg none 30 cm none negative none neg Type Weight in lbs Pre/Post Dialysis Refused Weight 145.6771482034 BP Diastolic BP Location Tested BP Systolic BP Type 58 98 Fetus Heart Rate Present A 150 Present Fetus Movement A Yes Comments 1 hr GTT, tdap Flowsheet Date 02/04/2019 Bee Score Blood Edema Fundus Height Fundus Units Glucose Ketones Leukocytes Nitrite Labor Signs Protein Cervic Dilation Cervic Effacement Cervic Station neg none 32 wks negative none Type Weight in lbs Pre/Post Dialysis Refused Weight 150.136486467139 BP Diastolic BP Location Tested BP Systolic BP Type 62 108 sitting Fetus Heart Rate Present A 145 Present Fetus Movement A Yes Comments Flowsheet Date 02/18/2019 Bee Score Blood Edema Fundus Height Fundus Units Glucose Ketones Leukocytes Nitrite Labor Signs Protein Cervic Dilation Cervic Effacement Cervic Station Type Weight in lbs Pre/Post Dialysis Refused Weight 150.107859237207 BP Diastolic BP Location Tested BP Systolic BP Type 70 108 sitting Fetus Heart Rate Present Fetus Movement Comments Flowsheet Date 03/04/2019 Bee Score Blood Edema Fundus Height Fundus Units Glucose Ketones Leukocytes Nitrite Labor Signs Protein Cervic Dilation Cervic Effacement Cervic Station Type Weight in lbs Pre/Post Dialysis Refused Weight 153.925268432265 BP Diastolic BP Location Tested BP Systolic BP Type 72 104 sitting Fetus Heart Rate Present Fetus Movement Comments Flowsheet Date 03/11/2019 Bee Score Blood Edema Fundus Height Fundus Units Glucose Ketones Leukocytes Nitrite Labor Signs Protein Cervic Dilation Cervic Effacement Cervic Station 32 cm Uterine Contract ions 0cm 0% -4 Type Weight in lbs Pre/Post Dialysis Refused Weight 154.112013576042 BP Diastolic BP Location Tested BP Systolic BP Type 68 104 sitting Fetus Heart Rate Present A 138 Present Fetus Movement A Yes Comments contractions occur at night Flowsheet Date 03/18/2019 Bee Score Blood Edema Fundus Height Fundus Units Glucose Ketones Leukocytes Nitrite Labor Signs Protein Cervic Dilation Cervic Effacement Cervic Station neg 36.5 cm none large Cramping 1+ Type Weight in lbs Pre/Post Dialysis Refused Weight 152.578705923156 BP Diastolic BP Location Tested BP Systolic BP Type 64 100 sitting Fetus Heart Rate Present A 130 Present Fetus Movement A Yes Comments contractions present Flowsheet Date 04/02/2019 Bee Score Blood Edema Fundus Height Fundus Units Glucose Ketones Leukocytes Nitrite Labor Signs Protein Cervic Dilation Cervic Effacement Cervic Station Type Weight in lbs Pre/Post Dialysis Refused Weight 133.589357006889 BP Diastolic BP Location Tested BP Systolic BP Type 60 102 sitting Fetus Heart Rate Present Fetus Movement Comments Menstrual History Last Menstrual Date Menses Monthly On Bcp Conception Prior Menses Frequency Hcg Plus Date Menarche Onset Age 0906/21/2018 false Genetic Screening And Infection History Question Response Note Patient's Age Will Be 35 Yea rs Or Older At Estimated Date of Delivery false Thalassemia (Israeli, St Lucian, Mediterranean, Or Background): MCV < 80 false Neural Tube Defect (Meningom yelocele, Spina Bifida, Or Anencephaly) false Congenital Heart Defect false Down Syndrome false Adrián-Sachs (eg, Hinduism, Cajun , German-Calvert) false Sowmya Disease false Sickle Cell Disease Or Trait () false Hemophilia Or Other Blood Disorders false Muscular Dystrophy false Cystic Fibrosis false Guernsey's Chorea false Mental Retardation/Autism false If Yes, Was Person Tested For Fragile X? false Other Inherited Genetic Or C hromosomal Disorder false Maternal Metabolic Disorder (eg, Type 1 Diabetes, PKU) false Patient Or Baby's Father Had A Child With Defects Not Listed Above false Recurrent Loss, Or A Stillbirth false Medications (including Suppl ements, Vitamins, Herbs, OTC Drugs), Illicit/Recreational Drugs, Alcohol true positive cannabis screen If Yes, Agent(s) And Strength/Dosage false Any Other Genetic History false Live With Someone With TB Or Exposed To TB false Patient Or Partner Has Histo ry Of Genital Herpes false Rash Or Viral Illness Since Last Menstrual Period false History Of STD, Gonorrhea, C hlamydia, HPV, Syphilis true HPV Other Infection History false History of HIV false History of Hepatitis false Prior GBS-infected child false Plans and Education First Trimester Discussed Date Discussion Item Discussion Note Discuss ed By 08/27/2018 Anticipated course o f care [email or web address] 08/27/2018 Alcohol [email or web address] 08/27/2018 Intimate partner violence ms [email or web address] 08/27/2018 Environmental/work hazards esteban 08/27/2018 Screening for aneuploidy msi [email or web address] 08/27/2018 Nutrition counseling ; special diet; dietary precautions (mercury, listeriosis) [email or web address] 08/27/2018 Childbirth classes/h ospital facilities [email or web address] 08/27/2018 HIV and other routin e tests at initial ob visit 08/27/2018 Risk factors identif ied by history [email or web address] 08/27/2018 Weight gain counseling msi [email or web address] 08/27/2018 Exercise [email or web address] 08/27/2018 Teratogens 08/27/2018 Use of any medicatio ns (including supplements, vitamins, herbs, or OTC drugs) 08/27/2018 12/17/18 breast feed, cb-rma [email or web address] 08/27/2018 Sexual activity [email or web address] 08/27/2018 Tobacco/smoking cess ation counseling (ask, advise, assess, assist, and arrange) 08/27/2018 Illicit/recreational drugs marijuana esteban [email or web address] 08/27/2018 Dental care given dental con sent at initial ob visit 08/27/2018 Travel [email or web address] 08/27/2018 Seat belt use [email or web address] 08/27/2018 Indications for ultrasonography [email or web address] 08/27/2018 Avoidance of saunas or hot tubs [id number] 08/27/2018 Toxoplasmosis precau tions (cats/raw meat) [id number] Second Trimester Discussed Date Discussion Item Discussion Note Discuss ed By 12/17/2018 Selecting a care provider 12/17/[address] David SAUNDERS, [facility] 03/19/2019 family planning/tubal sterilization [facility] 03/19/2019 Depression screening (when indicated) [facility] 03/19/2019 Abnormal lab values [facility] 03/19/2019 Signs and symptoms o f labor [facility] 03/19/2019 Intimate partner violence [facility] 03/19/2019 Tobacco/smoking cess ation counseling (ask, advise, assess, assist, and arrange) [facility] Third Trimester Discussed Date Discussion Item Discussion Note Discuss ed By 03/19/2019 Intimate partner violence [facility] 12/17/2018 Anesthesia plans 12/17/18 [email or web address] 03/19/2019 education (n ewborn screening, jaundice, SIDS/safe sleeping position, car seat) [facility] 12/17/2018 Circumcision 12/17/18 yes to circ if boy, [email or web address] 03/19/2019 Postterm counseling [facility] 03/19/2019 movement monitoring [facility] 12/17/2018 12/17/18 breast feed, [email or web address] 03/19/2019 Labor signs [facility] 03/19/2019 [facility] 03[facility]2019 Family medical leave or disability forms [facility] 03/19/2019 Tobacco/smoking cess ation counseling (ask, advise, assess, assist, and arrange) [facility] 03/19/2019 Trial of labor after (TOLAC) counseling [facility] 03/19/2019 Signs and symptoms o f preeclampsia [facility] Delivery Information Delivery Date Delivery Type Labor Anesthesia Weeks Gestation Incision Type Labor Labor Length Hrs Delivered By Post Complications Tubal Sterilization Discharge Date Comments 9 Induce d Regional-Sp inal 39 Low Transvers e false m rosalina None true 03/22/2019 Discharge Information Feeding Method Contraceptive Method Maternal HG B and HCT Levels Combination tubal Ob Episode Information Episode Created Date Number of Fetuses Patient Bloodtype Patient rh Status Prepregnancy Weight lbs Domestic Partner Domestic Partner Phone Father Name Corporate Physical Security Supervisor Status 12/28/19 17 1 AB Positive 115 agustin Hernandez CLOSED Fetus Data First Name Last Name Admitted to NICU Weight (g) Sex Living Outcome Pediatric Complications Fetus ID Race Codes Race Delivery Type Ariell e Arose oconnor false 3203.49 33 F true Full Term [id number] 2106-3 White Primary Problems Problem Notes 05/09/17 Baby girl, Amanda, trying breast feeding, Ped. Dr. David Saunders, yes to epidural, PPBC = BCP's NE 0.35mg while . MSimpson [place] 05/08/2017 mds Problem Name Start Date End Date Resolution Snomed Code Not e Hyperemesis 12/27/2016 958434985 Long hi story of hyperemesis Rubella non-immune 01/03/2017 104122845 needs vaccination post HPV - Human papillomavirus test positive 01/02/2017 [id number] Anthony Calculation Initial Anthony Date Initial Exam Date Initial Exam Provider Initial Ultrasound Date Last Menstrual Period Date Ultra Sound Weeks Gestation 07/06/2017 12/27/2016 [email or web address] 12/27/2016 08/28/2016 12 Eighteen To Twenty Week Anthony Update Ultra Sound Date Fundal Height At Umbil Quickening Date Ultra Sound Latest Weeks Gestation Final Anthony Confirmed By Final Anthony Confirmed Date Final Anthony Date Ultra Sound Latest Days Gestation 12/28/19 17 12 [email or web address] 02/18/2017 07/06/20 17 3 Pre-slade Flowsheet Flowsheet Date 12/27/2016 Bee Score Blood Edema Fundus Height Fundus Units Glucose Ketones Leukocytes Nitrite Labor Signs Protein Cervic Dilation Cervic Effacement Cervic Station neg none 9 wks none negative none neg Type Weight in lbs Pre/Post Dialysis Refused 115.986065199690 BP Diastolic BP Location Tested BP Systolic BP Type 66 98 sitting Fetus Heart Rate Present Fetus Movement Comments NOB, history of cyclical vom iting syndrome/chronic abdominal pain that is controlled with marijuana. Flowsheet Date 01/11/2017 Bee Score Blood Edema Fundus Height Fundus Units Glucose Ketones Leukocytes Nitrite Labor Signs Protein Cervic Dilation Cervic Effacement Cervic Station Type Weight in lbs Pre/Post Dialysis Refused BP Diastolic BP Location Tested BP Systolic BP Type Fetus Heart Rate Present Fetus Movement Comments Flowsheet Date 01/24/2017 Bee Score Blood Edema Fundus Height Fundus Units Glucose Ketones Leukocytes Nitrite Labor Signs Protein Cervic Dilation Cervic Effacement Cervic Station neg none 16 wks none negative none neg Type Weight in lbs Pre/Post Dialysis Refused 119.170963973162 BP Diastolic BP Location Tested BP Systolic BP Type 68 100 sitting Fetus Heart Rate Present A 148 Present Fetus Movement A No Comments VAULT PERSON thinks pink, patient thi nks blue. US today. AFP declined. Flowsheet Date 2017 Bee Score Blood Edema Fundus Height Fundus Units Glucose Ketones Leukocytes Nitrite Labor Signs Protein Cervic Dilation Cervic Effacement Cervic Station neg none 20.3 wks none negative none neg Type Weight in lbs Pre/Post Dialysis Refused [id number] BP Diastolic BP Location Tested BP Systolic BP Type 58 98 Fetus Heart Rate Present A 149 Present Fetus Movement A Yes Comments AFP declined, ultrasound rep eat Flowsheet Date 03/21/2017 Bee Score Blood Edema Fundus Height Fundus Units Glucose Ketones Leukocytes Nitrite Labor Signs Protein Cervic Dilation Cervic Effacement Cervic Station neg none 24 cm none negative none neg Type Weight in lbs Pre/Post Dialysis Refused 138.803570450507 BP Diastolic BP Location Tested BP Systolic BP Type 66 108 sitting Fetus Heart Rate Present A 150 Present Fetus Movement A Yes Comments 24.5wk DINESH; Gtt and tdap nex t wk Flowsheet Date 04/08/2017 Bee Score Blood Edema Fundus Height Fundus Units Glucose Ketones Leukocytes Nitrite Labor Signs Protein Cervic Dilation Cervic Effacement Cervic Station neg none 21 cm none negative none trace Type Weight in lbs Pre/Post Dialysis Refused 143.214318171883 BP Diastolic BP Location Tested BP Systolic BP Type 64 110 sitting Fetus Heart Rate Present A 137 Present Fetus Movement A Yes Comments GTT today, US orders given f or 3d US, DINESH in 2 weeks Flowsheet Date 05/09/2017 Bee Score Blood Edema Fundus Height Fundus Units Glucose Ketones Leukocytes Nitrite Labor Signs Protein Cervic Dilation Cervic Effacement Cervic Station neg none 33 cm none negative Backpain neg Type Weight in lbs Pre/Post Dialysis Refused 153.199721127540 BP Diastolic BP Location Tested BP Systolic BP Type Fetus Heart Rate Present A 133 Present Fetus Movement A Yes Comments Maternity belt given; US; pl ans to breastfeed. Flowsheet Date 05/22/2017 Bee Score Blood Edema Fundus Height Fundus Units Glucose Ketones Leukocytes Nitrite Labor Signs Protein Cervic Dilation Cervic Effacement Cervic Station neg none 27 cm none negative none trace Type Weight in lbs Pre/Post Dialysis Refused 155.62990350230 BP Diastolic BP Location Tested BP Systolic BP Type 58 106 Fetus Heart Rate Present A 154 Present Fetus Movement A Yes Comments 33.4 week DINESH. Continue to c omplain of back pain. Has maternity belt and is not wearing. Plans to breastfeed. Flowsheet Date 06/05/2017 Bee Score Blood Edema Fundus Height Fundus Units Glucose Ketones Leukocytes Nitrite Labor Signs Protein Cervic Dilation Cervic Effacement Cervic Station neg none 32 cm none negative Cramping neg 0cm 0% -4 Type Weight in lbs Pre/Post Dialysis Refused 157.998446273395 BP Diastolic BP Location Tested BP Systolic BP Type 72 110 sitting Fetus Heart Rate Present A 131 Present Fetus Movement A Yes Comments FFN and cultures were taken. Drink 3 liters of Gatorade per day. labor warnings were given. Get US with next visit on 06/12/17. Flowsheet Date 06/13/2017 Bee Score Blood Edema Fundus Height Fundus Units Glucose Ketones Leukocytes Nitrite Labor Signs Protein Cervic Dilation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
[2025-08-14 06:53] LABS: Hematocrit 36.5 % (37.0-47.0); Hemoglobin 12.0 g/dL (12.0-15.0); Immature Granulocyte Percent A 0.3 % (0-0.5); Lymphocytes Absolute Auto 1.74 K/mm3 (0.9-3.2); Mean Corpuscular HGB Conc 32.9 g/dl (32-36); Mean Corpuscular Hemoglobin 29.9 pg (26-34); Mean Corpuscular Volume 91.0 fl (80-100); Nucleated Red Blood Cells Absolute Auto 0.000 K/mm3 (0.0-0.012); Nucleated Red Blood Cells Perc 0.0 % (0.0-0.2); Platelet Count Result 341 k/mm3 (150-375); Red Blood Count 4.01 M/mm3 (4.2-5.4); White Blood Count 10.1 K/mm3 (4.5-10.0)
[2025-08-14 07:05] LABS: Alanine Aminotransferase 17 U/L (6-35); Albumin Level 4.9 g/dL (3.5-5.1); Alkaline Phosphatase 59 U/L (38-126); Anion Gap 13 mmol/L (4-12); Aspartate Amino Transferase 30 U/L (14-36); Bilirubin,Total 0.7 mg/dL (0.2-1.3); Blood Urea Nitrogen 9 mg/dL (7-17); Calcium 9.3 mg/dL (8.4-10.2); Carbon Dioxide 23 mmol/L (22-30); Chloride 98 mmol/L (98-107); Estimated Glomerular Filt Rate > 60; Glucose 95 mg/dL (65-110); Lipase 253 U/L (23-300); Potassium 3.5 mmol/L (3.4-5.0); Sodium 134 mmol/L (137-145); Total Protein 8.4 g/dL (6.3-8.2)
[2025-08-14] MEDS: LACTATED RINGERS 1,000 ML 999 ML IV CONT (07:31)
[2025-08-14 07:35] VITALS: BP 138/84; PULSE 96; RESP 16; O2SAT 100
[2025-08-14 07:39] LABS: BEDSIDEPREGUCG Negative (Negative)
[2025-08-14 07:40] VITALS: BP 138/84; PULSE 81; RESP 14; O2SAT 100
[2025-08-14 07:53] LABS: Add Urine Microscopic? YES; Appearance Urine Cloudy (Clear); Glucose Urine UA Negative (Negative); Leukocyte Esterase Ur Negative LEU/UL (Negative); Need Manual Microscopic Reviewed; Nitrate Urine Negative (Negative); Non Pathogenic Casts 0-2; Specific Grav Ur 1.030 (1.001-1.035)
--- NOTE | 2025-08-14 08:06 | PC.NURSE ---
Pt requesting pain medications at this time. made aware, no new orders.
[2025-08-14 08:36] LABS: Cannabinoid Screen Urine Positive (Negative)
[2025-08-14] MEDS: KETOROLAC 30 MG/ML VIAL (*BKC) IV PUSH (08:56)
== END 2025-08-14 10:14 | disposition home or self-care (01) ==
PROVIDERS: Emergency Provider Student in an Organized Health Care Education/Training Program; PCP Nurse Practitioner Family
DX: R10.9 Unspecified abdominal pain (principal); G89.29 Other chronic pain; R11.15 Cyclical vomiting syndrome unrelated to migraine
CPT/HCPCS: 36415; 80053; 80307; 81001; 81025; 83605; 83690; 85025; 96361; 96374; 96375; 99284; J1790; J1885; J7120